=== PATIENT | female | born 1980 | race Caucasian/White ===

== ENCOUNTER 2020-12-05 11:41 | Inpatient (IN) | payer BC, MEDICAID, SELFPAY ==
[~2020-12-05] VITALS: Ht 165.1 cm; Wt 102.8 kg
[2020-12-05] VITALS (13 sets, daily range): BP systolic 52–141
--- NOTE | 2020-12-05 00:10 | NUR ---
Dr Sebastian at bedside with new orders. Lab called with blood culture of gram negative rods result. Dr Sebastian made aware at bedside.
--- NOTE | 2020-12-05 11:50 | NUR ---
Placed in room 8 . Placed on equipment monitor phototypesetting, blood pressure machine and pulse oximeter. To gown for exam. Side rails up.
--- NOTE | 2020-12-05 11:50 | NUR ---
Pt bib ambulance with complaint of SOB Xtoday with nonrebreather saturating 100% Respiratory rate tachypnic of 30 HR tachycardic of 120. Pt is AAOX4 breathing is even and labored. Pt placed in gurney attached to monitor. Pt has preexisting picc line on right arm. Pt presenting with edemateous bilateral lower extremeties. BP 108/73.
--- NOTE | 2020-12-05 11:59 | NUR ---
Pt titrated down from nonrebreather to 4L Nasal Canula Saturating 97% RR 30 HR 123 BP 108/73. Pt denies any chest pain or cough or fever. Pt reports the shortness of breath started this morning. Pt states she feels tired.
[2020-12-05] MEDS ORDERED: NOREPINEPHRINE BITARTRATE 4 MG in D5W 246 ML IV ONE (12:15)
--- NOTE | 2020-12-05 12:15 | NUR ---
ER at bedside examining patient.
[2020-12-05] MEDS ORDERED: SPIR100T PO (12:22)
[2020-12-05] MEDS ORDERED: LIDOINT TP (12:22)
[2020-12-05] MEDS ORDERED: SSNOVOLOG SUBCUT (12:22)
[2020-12-05] MEDS ORDERED: ASCO500T20 PO (12:22)
[2020-12-05] MEDS ORDERED: FURO-149 PO (12:22)
[2020-12-05] MEDS ORDERED: HYDR-3610 PO (12:22)
[2020-12-05] MEDS ORDERED: POLY17PO4 PO (12:22)
[2020-12-05] MEDS ORDERED: TRAM100T28 PO (12:22)
[2020-12-05] MEDS ORDERED: HUM100IN SQ (12:22)
[2020-12-05] MEDS ORDERED: LOSA100T3 PO (12:22)
--- NOTE | 2020-12-05 12:22 | NUR ---
Medication reconciliation completed with information provided by patient . Any prior medication reconciliation on file was reviewed and corrected.
--- NOTE | 2020-12-05 12:22 | NUR ---
Called pharmacy for norepinephrine medication order.
--- NOTE | 2020-12-05 12:26 | NUR ---
X-ray at bedside.
--- NOTE | 2020-12-05 12:29 | NUR ---
Lab at bedside.
--- NOTE | 2020-12-05 12:29 | NUR ---
Covid specimen collected and sent to lab.
--- NOTE | 2020-12-05 12:36 | NUR ---
RT at bedside.
--- NOTE | 2020-12-05 12:56 | NUR ---
Started norepinephrine 4mg in 250 D5W per MD order. Pt BP 76/53 HR 120. Started 0.1mcg/kg/min.
--- NOTE | 2020-12-05 13:01 | NUR ---
Titrated norepinephrine to 0.13mcg/kg/min BP 64/24. HR 117
--- NOTE | 2020-12-05 13:06 | NUR ---
Pt BP 130/ 50. HR 120. No titration needed.
[2020-12-05] MEDS ORDERED: CEFEPIME 1 GM in D5W 50 ML IV ONE (13:15)
[2020-12-05] MEDS ORDERED: AZITHROMYCIN 500 MG in NS 250 ML IV ONE (13:15)
[2020-12-05] MEDS ORDERED: VANCOMYCIN HCL 1,000 MG in NS 250 ML IV ONE (13:15)
[2020-12-05 13:21] LABS: BASOPHILS % (AUTO) 0.7 % (0.0-2.0); EOSINOPHILS % (AUTO) 0.3 % (0.0-4.0); HEMATOCRIT 33.2 % (36-48); HEMOGLOBIN 10.6 g/dL (12.0-16.0); LYMPHOCYTES # (AUTO) 0.2 K/uL (1.0-5.5); MEAN CORPUSCULAR HEMOGLOBIN 32 pg (27-31); MEAN CORPUSCULAR HGB CONC 32 % (32-36); MEAN CORPUSCULAR VOLUME 99 fL (79.0-98.0); MONOCYTES # (AUTO) 0.1 K/uL (0.0-1.0); MONOCYTES % (AUTO) 2.9 % (1.7-9.3); NEUTROPHILS # (AUTO) 1.6 K/uL (1.8-7.7); NEUTROPHILS % (AUTO) 87.1 % (40.0-70.0); PLATELET COUNT (AUTO) 78 K/uL (130-430); RED BLOOD CELL COUNT(AUTO) 3.34 MIL/uL (4.2-6.2); RED CELL DISTRIBUTION WIDTH 20.2 % (9.0-15.0)
[2020-12-05 13:23] LABS: WHITE BLOOD COUNT (AUTO) 1.8 K/uL (4.8-10.8)
[2020-12-05 13:26] LABS: CALCIUM 8.2 mg/dL (8.4-11.0); CREATININE 1.52 mg/dL (0.55-1.30); POTASSIUM 3.6 mmol/L (3.5-5.1)
[2020-12-05 13:30] LABS: INR 1.1 (0.8-1.2); PROTHROMBIN TIME 11.6 SECS (9.5-12.5)
[2020-12-05] MEDS ORDERED: CEFEPIME 1 GM/VIAL (MAXIPIME) ONE (13:30)
[2020-12-05 13:32] LABS: ALBUMIN 1.9 g/dL (3.4-4.8); TOTAL BILIRUBIN 1.3 mg/dL (0.0-1.0)
[2020-12-05] MEDS ORDERED: AZITHROMYCIN 500 MG/VIAL (ZITHROMAX) IV ONE (13:54)
[2020-12-05] MEDS ORDERED: NOREPINEPHRINE BITARTRATE 4 MG in NS 246 ML IV ONE (14:00)
[2020-12-05] MEDS ORDERED: NACL 0.9% 1,000 ML IV ONE (14:00)
--- NOTE | 2020-12-05 14:00 | NUR ---
Titrated down to 0.1mcg/kg/min BP 128/50 HR 117
--- NOTE | 2020-12-05 14:29 | NUR ---
Norepinephrine stopped. BP 155/88 HR 117.
--- NOTE | 2020-12-05 14:30 | NUR ---
Ritter cathter inserted with sterile technique. Pt tolerated well richmond colored urine collected into bag.
--- NOTE | 2020-12-05 14:41 | NUR ---
Admit orders recieved.
[2020-12-05] MEDS ORDERED: NACL 0.9% 1,000 ML IV SCH (14:45)
[2020-12-05] MEDS ORDERED: VANCOMYCIN HCL 1000 MG/VIAL IV ONE (14:51)
[2020-12-05 14:54] LABS: BILIRUBIN,URINE NEGATIVE (NEGATIVE); BLOOD, URINE NEGATIVE (NEGATIVE); CLARITY/URINE SL CLOUDY (CLEAR); COLOR,URINE YELLOW (YELLOW); GLUCOSE,URINE NEGATIVE (NEGATIVE); KETONES,URINE TRACE (NEGATIVE); LEUKOCYTE ESTERASE ,URINE NEGATIVE (NEGATIVE); NITRITE, URINE NEGATIVE (NEGATIVE); PH,URINE 5.5 (5.0-8.0); PROTEIN URINE TRACE (NEGATIVE); UROBILINOGEN,URINE 0.2 (0.2-1.0)
--- NOTE | 2020-12-05 14:56 | NUR ---
Patient will be admitted to care of Dr. Durán. Admitted to ICU unit. Will go to room 1. Belongings list completed. Complete and up to date summary report printed. SBAR report to be given at bedside with opportunity for questions.
[2020-12-05 14:58] LABS: BACTERIA,URINE FEW /HPF (None Seen); RBC,URINE 0-3 /HPF (0-3); WBC,URINE 0-3 /HPF (0-3); YEAST,URINE Many /HPF (None Seen)
[2020-12-05] MEDS ORDERED: HYDROCORTISONE SOD SUCC 100 MG/2 ML VIAL IVP ONE (15:00)
--- NOTE | 2020-12-05 15:20 | NUR ---
PT RECEIVED FROM ED, REPORT RECEIVED FROM MELISSA DEAN FOR CONTINUING CARE. PT ARRIVES ON NRB @15LPM, HYPOTENSIVE AND TACHYPNEIC. PT IS AAOX4, ANXIOUS
--- NOTE | 2020-12-05 15:38 | NUR ---
# 22 gauge angiocath placed to and. Use of asceptic technique. Opsite placed over site. Blood return noted. Blood for lab drawn from site. Flushed with 10 cc of normal saline. No evidence of infiltration noted. Patient tolerated well.
--- NOTE | 2020-12-05 15:40 | NUR ---
PT PLACED ON BIPAP, IPAP 12 EPAP 6, RATE 16. O2 100%. PTS O2 SAT 98-100%
--- NOTE | 2020-12-05 15:50 | NUR ---
CONSULTATION PAGED/CALLED Reason for Consultation: septic shock, tachycardia, hypotension Person Who was Notified: exchange Consulting Physician: Dr. Walker Ict Development Manager Specialty: cardiology Ordering Physician: Luis Armando Reason for Consultation: tachypnea, dyspnea, septic shock Person Who was Notified: exchange Consulting Physician: Dr. Mccloud Ict Development Manager Specialty: pulmonary Ordering Physician: Luis Armando
--- NOTE | 2020-12-05 16:15 | NUR ---
ER DR. CONTE AT THE BEDSIDE FOR INTUBATION, 7.5 ET TUBE PLACED AT 22CM TO LIP
--- NOTE | 2020-12-05 16:40 | NUR ---
ER DR. CONTE AT THE BEDSIDE FOR RIGHT SUBCLAVIAN CENTRAL LINE PLACEMENT
--- NOTE | 2020-12-05 16:45 | NUR ---
Dr. Mccloud in to see pt. New orders made and carried out.
[2020-12-05] MEDS ORDERED: NALOXONE HCL 0.4 MG/ML AMP (NARCAN) IVP PRN (17:00)
[2020-12-05] MEDS ORDERED: MORPHINE SULFATE IN 0.9 % NACL 100 ML IV PRN (17:00)
[2020-12-05] MEDS ORDERED: LR 1,000 ML IV ONE ×2 (17:00)
[2020-12-05] MEDS ORDERED: VASOPRESSIN 100 UNITS in D5W 45 ML IV PRN (17:00)
--- NOTE | 2020-12-05 17:04 | NUR ---
NICOLETTE. DR. VELASCO, ORDERS RECEIVED
--- NOTE | 2020-12-05 17:17 | NUR ---
CONSULTATION PAGED/CALLED Reason for Consultation: septic shock Person Who was Notified: exchange Consulting Physician: Dr. Phani Sebastian Analytics Director Specialty: infectious disease Ordering Physician: Dr. Durán
--- NOTE | 2020-12-05 17:27 | NUR ---
NICOLETTE URIBE FOR CONSULT, ORDERS RECEIVED
[2020-12-05] MEDS ORDERED: NOREPINEPHRINE BITARTRATE 16 MG in NS 234 ML IV PRN (17:30)
[2020-12-05] MEDS: PROPOFOL DRIP 100 ML IV PRN ×2 (17:36→23:02)
[2020-12-05] MEDS ORDERED: PIPERACILLIN/TAZO 3.375/DEX-IS 50 ML IV SCH (18:00)
[2020-12-05] MEDS: DEXTROSE 50% JECT 50 ML DISP.SYRIN IVP PRN (18:32)
[2020-12-05 18:54] LABS: HEMOGLOBIN 8.3 g/dL (12.0-16.0); RED BLOOD CELL COUNT(AUTO) 2.64 MIL/uL (4.2-6.2); RED CELL DISTRIBUTION WIDTH 20.3 % (9.0-15.0)
[2020-12-05] MEDS ORDERED: VANCOMYCIN HCL 1,750 MG in NS 500 ML IV SCH (19:00)
[2020-12-05 19:01] LABS: HEMATOCRIT 26.3 % (36-48); MEAN CORPUSCULAR HEMOGLOBIN 31 pg (27-31); MEAN CORPUSCULAR HGB CONC 32 % (32-36); MEAN CORPUSCULAR VOLUME 100 fL (79.0-98.0)
[2020-12-05 19:07] LABS: PLATELET COUNT (AUTO) 49 K/uL (130-430); WHITE BLOOD COUNT (AUTO) 1.4 K/uL (4.8-10.8)
--- NOTE | 2020-12-05 19:25 | NUR ---
REPORT GIVEN TO MELISSA AHUJA FOR CONTINUING CARE
--- NOTE | 2020-12-05 19:30 | NUR ---
Report received from day RN. Assuming care now.
[2020-12-05 19:35] LABS: BAND % (MANUAL) 53 % (0-6); BASOPHILS % (MANUAL) 0 % (0-2); EOSINOPHILS % (MANUAL) 1 % (0-7); LYMPHOCYTES % (MANUAL) 10 % (20-46); METAMYELOCYTES % 14 % (0-0); MONOCYTES % (MANUAL) 6 % (0-11); MYELOCYTES % 5 % (0-0); PROMYELOCYTES % 1 % (0-0)
[2020-12-05 19:37] LABS: CORRECTED WHITE BLOOD COUNT 1.2 K/uL (4.5-11.0)
--- NOTE | 2020-12-05 20:00 | NUR ---
Levophed iv pump set to 4mg/250ml while running 16mg/250ml concentration upon assessment. Pump changed to 16mg setting and increased to 1mcg/kg/min to maintain MAP>65
--- NOTE | 2020-12-05 20:02 | NUR ---
PAGED FOR ORDERS DIALED: [phone] SPOKE TO: TONYA
--- NOTE | 2020-12-05 20:20 | NUR ---
DR BUTT NOTIFIED OF ABG RESULTS, NO VENT CHANGE AT THIS TIME. NOTIFIED OF PATIENT'S CONDITION. nEOSYNEOPHRINE ORDERED IF VASOPRESSIN IS NOT ENOUGH MAP SUPPORT. LACTIC ACID IN AM.
[2020-12-05] MEDS: FLUCONAZOLE 400 mg/ NS 200 ML IV SCH (20:30)
[2020-12-05] MEDS: FAMOTIDINE PF 20 MG/2 ML VIAL IVP SCH (21:42)
[2020-12-05] MEDS: HYDROCORTISONE SOD SUCC 100 MG/2 ML VIAL IVP SCH (21:46)
[2020-12-05] MEDS ORDERED: FLUCONAZOLE 200 mg/ NS 200 ML IV ONE (21:59)
[2020-12-05] MEDS ORDERED: PIPERACILLIN/TAZO 4.5GM/DEX-IS 100 ML IV SCH (22:00)
[2020-12-05] MEDS: PHENYLEPHRINE HCL 50 MG in NS 245 ML IV PRN (23:03)
[2020-12-05] MEDS ORDERED: PHENYLEPHRINE HCL 10 MG/ML VIAL (NEOSYNEPHRINE) ONE (23:11)
[2020-12-06] VITALS (33 sets, daily range): BP systolic 91–189
[2020-12-06] MEDS ORDERED: NS 1000 ML IV.SOLN IV ONE (00:15)
[2020-12-06] MEDS ORDERED: ALBUMIN HUMAN 25% 200 ML IV ONE ×2 (00:30→02:48)
[2020-12-06] MEDS: NACL 0.9% 1,000 ML IV SCH ×4 (00:33→20:15)
[2020-12-06] MEDS: MEROPENEM 1 GM IVPB PREMIX 50 ML IV SCH ×2 (00:40→22:00)
[2020-12-06] MEDS ORDERED: MEROPENEM 500 MG VIAL IV ONE (00:42)
[2020-12-06] MEDS: NOREPINEPHRINE BITARTRATE 16 MG in NS 234 ML IV PRN ×3 (01:13→12:12)
[2020-12-06] MEDS ORDERED: PHENYLEPHRINE HCL 10 MG/ML VIAL (NEOSYNEPHRINE) ONE ×2 (02:35→05:51)
[2020-12-06 04:06] LABS: FOLATE (FOLIC ACID) 13.3 ng/mL (>3.0)
[2020-12-06] MEDS: HYDROCORTISONE SOD SUCC 100 MG/2 ML VIAL IVP SCH ×3 (06:38→21:42)
--- NOTE | 2020-12-06 07:00 | NUR ---
Recv report fr Wally rn, patient blood pressure very labile last night, currently patient is on 3 pressors all maxed out, bp is labile, i will monitor bp closely and titrate pressors according to patient's condition, patient is on Propofol at 15 mcg, arousable and responses to verbal commands, unable to increase due to low bp, Morphine is off. patient is being bolus with ns at 150 /hr to care for the sepsis, antibiotics were prescribed, will provide comfort, i will continue nursing care and interventions.
[2020-12-06 07:02] LABS: ALBUMIN 2.6 g/dL (3.4-4.8); CALCIUM 7.4 mg/dL (8.4-11.0); CREATININE 1.62 mg/dL (0.55-1.30); POTASSIUM 5.1 mmol/L (3.5-5.1); TOTAL BILIRUBIN 2.8 mg/dL (0.0-1.0)
[2020-12-06 07:06] LABS: HEMOGLOBIN A1C 5.4 % (4.8-5.6)
[2020-12-06 07:14] LABS: BASOPHILS % (AUTO) 0.2 % (0.0-2.0); EOSINOPHILS # (AUTO) 0.1 K/uL (0.0-0.4); EOSINOPHILS % (AUTO) 1.8 % (0.0-4.0); HEMATOCRIT 28.1 % (36-48); HEMOGLOBIN 8.7 g/dL (12.0-16.0); LYMPHOCYTES # (AUTO) 0.2 K/uL (1.0-5.5); LYMPHOCYTES % (AUTO) 5.9 % (20.5-51.5); MEAN CORPUSCULAR HEMOGLOBIN 32 pg (27-31); MEAN CORPUSCULAR HGB CONC 31 % (32-36); MEAN CORPUSCULAR VOLUME 104 fL (79.0-98.0); MONOCYTES # (AUTO) 0.2 K/uL (0.0-1.0); MONOCYTES % (AUTO) 4.3 % (1.7-9.3); NEUTROPHILS # (AUTO) 3.1 K/uL (1.8-7.7); RED BLOOD CELL COUNT(AUTO) 2.72 MIL/uL (4.2-6.2); RED CELL DISTRIBUTION WIDTH 20.8 % (9.0-15.0); WHITE BLOOD COUNT (AUTO) 3.6 K/uL (4.8-10.8)
[2020-12-06 07:51] LABS: NEUTROPHILS % (AUTO) 87.8 % (40.0-70.0); PLATELET COUNT (AUTO) 36 K/uL (130-430)
--- NOTE | 2020-12-06 08:00 | NUR ---
Dr. Fernández called he said he is going to be here reported abg results and he said to give 1 amp of sodium bicarb.
[2020-12-06] MEDS: PROPOFOL DRIP 100 ML IV PRN ×2 (08:23→16:58)
[2020-12-06] MEDS: VANCOMYCIN HCL 1,750 MG in NS 500 ML IV SCH (08:25)
[2020-12-06] MEDS: FAMOTIDINE PF 20 MG/2 ML VIAL IVP SCH ×2 (08:48→21:42)
[2020-12-06] MEDS ORDERED: SODIUM BICARBONATE 8.4% JECT 50 MEQ/50 ML SYRINGE IVP ONE (09:00)
[2020-12-06] MEDS: PHENYLEPHRINE HCL 50 MG in NS 245 ML IV PRN ×2 (09:03→12:23)
--- NOTE | 2020-12-06 09:25 | NUR ---
RT NOTES FIO2 to 0.50. Rn made aware. Will monitor pt.
--- NOTE | 2020-12-06 09:59 | NUR ---
Nutrition Update Morteza Scale 11 noted. Pt admitted for septic shock. Diet: NPO BMI: 33.3 kg/m2 RD to follow per nutrition care standards.
--- NOTE | 2020-12-06 10:00 | NUR ---
S/w Dr Sebastian, he said to titrate sbp >90, and titrate all drips accordingly, alos he said to keep patient hydrated. ananth lowered the vasopressing at 0.02 unit/hr. levophed remains both at maximum doses. i will closely monitor the patient.
--- NOTE | 2020-12-06 11:00 | NUR ---
Turned off the vasopressin drip, and titrated neosynephrinde downt to 2 mcg/kg/hr, sbp above 130S, also increased Propofol to 25 mcg, patient still mving around and trying to reach the et tube., i will continue to titrate the drips.
--- NOTE | 2020-12-06 12:00 | NUR ---
Titrated down neosyenphrine to 1 mcg/kg/hr and the levophed down to 0.8 mcg/kg/hr, Dr Sebastian came and said that continue to titrate drips, and also continue to hydrate the patient. patient's sbp consistenly above 100.
[2020-12-06] MEDS ORDERED: ETOMIDATE 20 MG/ 10 ML VIAL (AMIDATE) IVP ONE (13:29)
[2020-12-06] MEDS ORDERED: ROCURONIUM BROMIDE 10 MG/ML (ZEMURON) IV ONE (13:29)
--- NOTE | 2020-12-06 14:00 | NUR ---
Patient vitals sign continue to improved except hr remains in the 120 bpm, Turned off neosyephrine, 1 vasopressor left Levophed at 0.8 mcg/kg/hr, turned and repositioned the patient also vents fio2 down to 50 % current o2 sat is 96 to 97%...
--- NOTE | 2020-12-06 15:30 | NUR ---
Patient is undergoing lower arterial duplex ultrasound and will have a kidney ultrasound, patient is not having urine output, dr youssef is aware.
--- NOTE | 2020-12-06 19:30 | NUR ---
Report received from day RN. Assuming care now.
[2020-12-06] MEDS: FLUCONAZOLE 400 mg/ NS 200 ML IV SCH (20:49)
[2020-12-07] VITALS (34 sets, daily range): BP systolic 89–168
--- NOTE | 2020-12-07 01:23 | NUR ---
Accucheck=53, D50% given per protocol.
[2020-12-07] MEDS: DEXTROSE 50% JECT 50 ML DISP.SYRIN IVP PRN (01:36)
[2020-12-07] MEDS: NACL 0.9% 1,000 ML IV SCH (02:55)
[2020-12-07] MEDS: MEROPENEM 1 GM IVPB PREMIX 50 ML IV SCH ×3 (06:01→21:04)
[2020-12-07] MEDS: HYDROCORTISONE SOD SUCC 100 MG/2 ML VIAL IVP SCH ×3 (06:02→21:07)
[2020-12-07 07:17] LABS: ALBUMIN 1.4 g/dL (3.4-4.8); CREATININE 2.06 mg/dL (0.55-1.30); POTASSIUM 4.9 mmol/L (3.5-5.1); TOTAL BILIRUBIN 2.2 mg/dL (0.0-1.0)
[2020-12-07 07:21] LABS: CALCIUM 6.3 mg/dL (8.4-11.0)
[2020-12-07 08:07] LABS: MEAN CORPUSCULAR HEMOGLOBIN 33 pg (27-31); MEAN CORPUSCULAR HGB CONC 34 % (32-36); MEAN CORPUSCULAR VOLUME 99 fL (79.0-98.0); RED BLOOD CELL COUNT(AUTO) 2.05 MIL/uL (4.2-6.2); RED CELL DISTRIBUTION WIDTH 20.1 % (9.0-15.0); WHITE BLOOD COUNT (AUTO) 2.4 K/uL (4.8-10.8)
--- NOTE | 2020-12-07 08:29 | NUR ---
Called Dr. Graham with a consult, spoke with Edith from the exchange
[2020-12-07] MEDS: VANCOMYCIN HCL 1,750 MG in NS 500 ML IV SCH (08:58)
[2020-12-07] MEDS: FAMOTIDINE PF 20 MG/2 ML VIAL IVP SCH ×2 (08:59→20:59)
[2020-12-07] MEDS: FUROSEMIDE 40 MG/4 ML VIAL IVP SCH ×2 (08:59→21:03)
[2020-12-07] MEDS: D5/0.45 NS 1,000 ML IV SCH (09:01)
--- NOTE | 2020-12-07 09:15 | NUR ---
RT NOTES FIO2 TO 0.40. RN MADE AWARE.
[2020-12-07] MEDS ORDERED: CALCIUM GLUCONATE 2 GM in NS 100 ML IV ONE (09:30)
[2020-12-07 09:38] LABS: INR 1.1 (0.8-1.2); PROTHROMBIN TIME 11.9 SECS (9.5-12.5)
[2020-12-07 10:41] LABS: HEMATOCRIT 20.3 % (36-48); HEMOGLOBIN 6.8 g/dL (12.0-16.0); PLATELET COUNT (AUTO) 11 K/uL (130-430)
[2020-12-07] MEDS: NOREPINEPHRINE BITARTRATE 16 MG in NS 234 ML IV PRN ×2 (11:41→23:30)
--- NOTE | 2020-12-07 11:49 | NUR ---
Called Franklyn Delarosa with a consult(El catheter placement) spoke with Yesica from doctors office.
--- NOTE | 2020-12-07 12:00 | NUR ---
Patient hr sustaining above 150's paged dr olimpia howe cardiologists to get orders for medication.
[2020-12-07] MEDS ORDERED: AMIODARONE HCL 150 MG in D5W 100 ML IV ONE (12:15)
[2020-12-07] MEDS: PROPOFOL DRIP 100 ML IV PRN ×2 (13:14→21:07)
--- NOTE | 2020-12-07 13:30 | NUR ---
WOUND EVALUATION: Late note for 12/07/2020 at 1330 secondary to patient care. Wound Consult received from Dr. Durán. Thank you, Dr. Durán, for the consult. Patient received in a Omega Bed with a mattress, nonverbal, nonresponsive to verbal commands. Patient is unable to turn in bed independently. Morteza Score is a 7. Past Medical History: Diabetes Mellitus. Upon admission, the patient was found to be in septic shock with hypoxemia. Recent Labs: WBC 2.4, RBC 2.05, hemoglobin is 6.8, hematocrit 20.3, platelets 11, chloride 111, BUN 39, creatinine 2.06, GFR 28, glucose 108, calcium 6.3, total bilirubin 2.2, AST 48, serum total protein 3.7, albumin 1.4, PTT 53.4, fibrinogen 491, D-dimer 2370. Microbiology: MRSA screen results negative. Blood culture results positive for Klebsiella pneumoniae (12/05). Urine culture results negative. Foot wound culture results positive for Enterococcus faecalis. Leg wound culture results positive for Klebsiella pneumoniae A. Foot Gram stain positive for yeast. Endotracheal sputum culture results negative. Blood culture results x2 negative (12/07). Intrinsic factors that delay wound healing: Diabetes mellitus, severe hypoalbuminemia. Extrinsic factors that delay wound healing: Immobility. Wound Assessment: 1. Right Posterior Calf: Wound, possible vascular ulcer, present on admission. Wound bed has 90% yellow tissue, 10% red tissue. No odor, small serous drainage. Periwound intact. Extremity has 4+ pitting edema, and red/dark purple/black ecchymosis. Wound measures 1.4 cm x 1.0 cm. 2. Right Anterior Lateral Proximal Thigh: Open bulla, present on admission. Site has 100% red tissue. No odor, scant serous drainage. Extremity has 4+ pitting edema, and red/dark purple/black ecchymosis. Open area measures 3.0 cm x 5.8 cm. Recommend: Cleanse wounds with normal saline. Apply moisture barrier cream to hari-wounds. Apply Hydrogel to wound beds. Cover with non-adhesive foam dressings. Wrap with vidya wrap. Perform wound care daily, and as needed for dressing soiling or dislodgement. 3. Right Lateral Proximal Thigh: Closed bulla with serous fluid, present on admission. Extremity has 4+ pitting edema, and red/dark purple/black ecchymosis. 4. Right Anterior Dee: Multiple scattered closed bullae with serous fluid, present on admission. Extremity has 4+ pitting edema, and red/dark purple/black ecchymosis. 5. Right Anterior Medial Dee: Closed bulla with serous fluid, present on admission. Extremity has 4+ pitting edema, and red/dark purple/black ecchymosis. Recommend: No dressings needed. Continue to monitor sites every shift. Contact wound care nurse if sites open or drain for wound care orders. 6. Right Dorsal Medial foot: Wound, possible vascular ulcer, present on admission. Wound bed has 90% yellow tissue, 10% pink tissue. No odor, small yellow drainage. Periwound intact. Extremity has 4+ pitting edema, and red/dark purple/black ecchymosis. Wound measures 3.2 cm x 2.0 cm. 7. Right Dorsal Foot: Wound, possible vascular ulcer, present on admission. Wound bed has 95% yellow tissue, 5% pink tissue. No odor, small yellow drainage. Periwound intact. Extremity has 4+ pitting edema, and red/dark purple/black ecchymosis. Wound measures 3.8 cm x 1.8 cm. Recommend: Cleanse wounds with normal saline. Apply moisture barrier cream to hari-wounds. Apply Hydrogel to wound beds. Cover with non-adhesive foam dressings. Wrap with vidya wrap. Perform wound care daily, and as needed for dressing soiling or dislodgement. 8. Left Anterior Medial Calf: Wound, possible vascular ulcer, present on admission. Wound bed has 90% yellow tissue, 5% pink tissue, 5% brown tissue. No odor, scant yellow drainage. Periwound intact. Extremity has 4+ pitting edema, and red/dark purple/black ecchymosis. Wound measures 4.4 cm x 3.5 cm. 9. Left Mid Anterior Dee: Wound, possible vascular ulcer, present on admission. Wound bed has 100% yellow tissue. No odor, moderate serous drainage. Periwound intact. Extremity has 4+ pitting edema, and red/dark purple/black ecchymosis. Wound measures 3.0 cm x 2.0 cm x 1.1 cm. Recommend: Cleanse wounds with normal saline. Apply moisture barrier cream to hari-wounds. Apply Hydrogel to wound beds. Cover with non-adhesive foam dressings. Wrap with vidya wrap. Perform wound care daily, and as needed for dressing soiling or dislodgement. 10. Left Lower Extremity, Inferior to Knee: Healing wound, present on admission. Wound bed has 100% pink tissue. No odor, no drainage. Periwound intact. Extremity has 4+ pitting edema, and red/dark purple/black ecchymosis. Site measures 2.0 cm x 1.6 cm. Recommend: Cleanse involved area with mild soap and water. Gently pat dry. Apply moisture barrier cream to involved area. Cover site with foam dressing. Perform site care daily, and as needed for dressing soiling or dislodgment. 11. Left Dorsal Foot: Wound, probable vascular ulcer, present on admission. Wound bed has 95% yellow tissue, 5% pink tissue. No odor, scant yellow drainage. Extremity has 4+ pitting edema, and red/dark purple/black ecchymosis. Wound measures 3.5 cm x 2.5 cm x 0.9 cm. Recommend: Cleanse wound with normal saline. Apply moisture barrier cream to hari-wound. Apply Hydrogel to wound bed. Cover with non-adhesive foam dressing. Wrap with vidya wrap. Perform wound care daily, and as needed for dressing soiling or dislodgement. Also recommend: Reposition patient side to side only every 2 hours with pillow support and off-load pressure areas with pillows for pressure re-distribution. Offload, elevate and float bilateral heels with one pillow lengthwise under each extremity at all times. Perform skin care and monitor skin integrity Q shift. Use moisture barrier cream on buttocks and other moisture susceptible areas QID and as needed for soiling. Initiate low air-loss therapy.
[2020-12-07 13:44] LABS: BAND % (MANUAL) 32 % (0-6); EOSINOPHILS % (MANUAL) 2 % (0-7); LYMPHOCYTES % (MANUAL) 10 % (20-46); MONOCYTES % (MANUAL) 6 % (0-11)
[2020-12-07 13:45] LABS: BASOPHILS % (MANUAL) 0 % (0-2); METAMYELOCYTES % 16 % (0-0); MYELOCYTES % 4 % (0-0)
--- NOTE | 2020-12-07 14:52 | NUR ---
spoke with patient's sister Jacquelin who is the main contact as well as lucía her mother, she gave the ok to cut patient's 5 gold bracelets. Addendum: 12/11/20 at 1244 by Manuel Burns RN Patient's mother Lucía came at around 4 pm, to pick up man patient's cell phone and 5 gold color bracelets.
--- NOTE | 2020-12-07 15:00 | NUR ---
Patient went on uncontrolled afib, notified dr rafael howe, he ordered for amiodarone protocol.
--- NOTE | 2020-12-07 16:00 | NUR ---
Patient hr remains still at 130 snow amiodarone is at 1 mg/hr, i will continue to monitor the patient
--- NOTE | 2020-12-07 17:00 | NUR ---
Trung wound care nurse, he checked all the wounds and will enter orders for wound care.
--- NOTE | 2020-12-07 18:00 | NUR ---
[facility] dialysis nurse, came to do the dialysis, i will pick up truck driver prbc per order.
--- NOTE | 2020-12-07 18:30 | NUR ---
Patients hr went down to low 60's , Enmanuel stopped the dialysis , also i stopped the amiodaron drip, we will closely monitor the patient, Lizeth is on stand by , platelet still needs to be given, i will give report to the lieutenant shift supervisor nursel
--- NOTE | 2020-12-07 19:30 | NUR ---
Pt report received. Pt sedated, mechanically ventilated: A/C, 24, 400, 40%, 5. OGT clamped. Right Subclavian Triple Lumen central line patent and secure with Levophed Drip infusing at 0.5 mcg/kg/min, Propofol at 25 mcg/kg/min, and D5 1/2 NS at 50 mL/hr. 4+ pitting edema, skin mottling and bruising generalized to abdomen and all extremities. Weeping to BUE from previous venipuncture sites and to open blisters to right upper thigh, saturating linens. Large fluid filled blisters to lateral RLE. F/C secure draining cloudy richmond urine with 200 mL to bag. Foam dsgs to bilat feet. Hemodialysis in progress to Right femoral El cath. VSS stable and NAD at this time.
--- NOTE | 2020-12-07 20:41 | NUR ---
Hemodialysis complete with 2000 mL fluid removal. Levophed titrations required during treatment. Bed linens changed, clean gown applied, pressure dsgs applied to weeping sites, chucks placed beneath extremities. ABD pads and chucks applied to right upper thigh and to closed blisters to lateral RLE.
[2020-12-07] MEDS: FLUCONAZOLE 400 mg/ NS 200 ML IV SCH (21:04)
[2020-12-08] VITALS (23 sets, daily range): BP systolic 90–164
--- NOTE | 2020-12-08 | NUR ---
ABD pads to right upper thigh saturated with serosanguinous drainage. New dsgs applied. Dsg to El cath saturated with serosanguinous fluid. Dsg changed using sterile technique.
--- NOTE | 2020-12-08 04:00 | NUR ---
Chucks and ABD pads to RLE soiled. New dsgs applied.
[2020-12-08] MEDS ORDERED: PROPOFOL DRIP 100 ML IV ONE (04:47)
[2020-12-08] MEDS: NOREPINEPHRINE BITARTRATE 16 MG in NS 234 ML IV PRN ×3 (04:53→23:11)
[2020-12-08] MEDS: PROPOFOL DRIP 100 ML IV PRN ×4 (04:53→21:48)
[2020-12-08] MEDS: HYDROCORTISONE SOD SUCC 100 MG/2 ML VIAL IVP SCH ×3 (05:26→22:06)
[2020-12-08] MEDS: MEROPENEM 1 GM IVPB PREMIX 50 ML IV SCH ×3 (05:27→22:06)
[2020-12-08] MEDS: D5/0.45 NS 1,000 ML IV SCH (05:27)
--- NOTE | 2020-12-08 07:20 | NUR ---
Pt report given to oncoming RN. No changes in vent settings, Levophed Drip at 0.54 mcg/kg/min, Propofol at 25 mcg/kg/minj, D5 1/2 NS at 50 mL/hr to patent and secure to RSC TLC. Total U/O this shift 250 mL. VSS.
--- NOTE | 2020-12-08 08:00 | NUR ---
PT RECIEVED SEDATED, GAG/COUGH PRESENT BUT WELL SEDATED ON PROPOFOL DRIP/SLIGHTLY FEB Addendum: 12/08/20 at 1357 by Billie Acosta radiographic technologist SLIGHTLY FEBRILE BUT BP STABLE ON LEVOPHED DOSE/PT HAS WHITE FOAMY SECRETIONS IN MODERATE AMOUNT AND IS IN NO APPARENT DISTRESS ON VENT//MW
[2020-12-08] MEDS: FUROSEMIDE 40 MG/4 ML VIAL IVP SCH ×2 (09:30→22:06)
[2020-12-08] MEDS: FAMOTIDINE PF 20 MG/2 ML VIAL IVP SCH ×2 (09:30→22:07)
--- NOTE | 2020-12-08 09:52 | NUR ---
Called Sam Bucio with a consult,spoke with Clary from the exchange
[2020-12-08] MEDS ORDERED: NOREPINEPHRINE 4 MG/4 ML VIAL IV ONE ×3 (10:28→16:04)
[2020-12-08 10:35] LABS: HEMOGLOBIN 7.6 g/dL (12.0-16.0); MEAN CORPUSCULAR HEMOGLOBIN 32 pg (27-31); MEAN CORPUSCULAR HGB CONC 35 % (32-36); MEAN CORPUSCULAR VOLUME 93 fL (79.0-98.0); RED BLOOD CELL COUNT(AUTO) 2.36 MIL/uL (4.2-6.2); RED CELL DISTRIBUTION WIDTH 19.1 % (9.0-15.0); WHITE BLOOD COUNT (AUTO) 5.5 K/uL (4.8-10.8)
[2020-12-08 10:42] LABS: CREATININE 2.01 mg/dL (0.55-1.30); POTASSIUM 4.3 mmol/L (3.5-5.1)
[2020-12-08 10:48] LABS: ALBUMIN 1.3 g/dL (3.4-4.8); TOTAL BILIRUBIN 3.3 mg/dL (0.0-1.0)
[2020-12-08 10:50] LABS: PLATELET COUNT (AUTO) 5 K/uL (130-430)
[2020-12-08 10:51] LABS: CALCIUM 6.8 mg/dL (8.4-11.0)
[2020-12-08 12:44] LABS: BAND % (MANUAL) 29 % (0-6); BASOPHILS % (MANUAL) 0 % (0-2); EOSINOPHILS % (MANUAL) 0 % (0-7); LYMPHOCYTES % (MANUAL) 7 % (20-46); METAMYELOCYTES % 1 % (0-0); MONOCYTES % (MANUAL) 7 % (0-11)
--- NOTE | 2020-12-08 13:53 | NUR ---
PT RECIEVING 1 UNIT PRBC NOW WITH DIALYSIS, PT PLATELETS STILL NOT HERE FROM [place] BUT PRBC XFUSION RUNNING//MW
--- NOTE | 2020-12-08 16:23 | NUR ---
Nutrition Note RD called ICU and spoke w/ pt's primary RN to inquire about possibility of starting EN support via OGT. He stated that he asked two separate physicians today, and they stated that pt is not yet ready to start feeding. Please refer to Nutrition Assessment 12/07 for recommendation once TF is medically appropriate.
[2020-12-08] MEDS: FLUCONAZOLE 400 mg/ NS 200 ML IV SCH (22:05)
[2020-12-09] VITALS (31 sets, daily range): BP systolic 86–141
[2020-12-09] MEDS: D5/0.45 NS 1,000 ML IV SCH (00:45)
[2020-12-09] MEDS: INSULIN REGULAR, HUMAN 100 UNITS/ML, 10 ML VIAL (humuLIN R) SUBCUT PRN ×2 (01:24→20:04)
[2020-12-09] MEDS: PROPOFOL DRIP 100 ML IV PRN ×4 (01:25→14:49)
[2020-12-09] MEDS ORDERED: LEVOFLOXACIN IN DEXTROSE 5 % 100 ML IV ONE (03:30)
[2020-12-09] MEDS: HYDROCORTISONE SOD SUCC 100 MG/2 ML VIAL IVP SCH ×3 (06:50→21:15)
[2020-12-09] MEDS: FUROSEMIDE 40 MG/4 ML VIAL IVP SCH ×2 (08:27→21:14)
[2020-12-09] MEDS: FAMOTIDINE PF 20 MG/2 ML VIAL IVP SCH ×2 (08:27→21:15)
[2020-12-09 08:39] LABS: HEMATOCRIT 23.1 % (36-48); HEMOGLOBIN 8.3 g/dL (12.0-16.0); MEAN CORPUSCULAR HEMOGLOBIN 32 pg (27-31); MEAN CORPUSCULAR HGB CONC 36 % (32-36); MEAN CORPUSCULAR VOLUME 90 fL (79.0-98.0); RED BLOOD CELL COUNT(AUTO) 2.56 MIL/uL (4.2-6.2); RED CELL DISTRIBUTION WIDTH 17.8 % (9.0-15.0); WHITE BLOOD COUNT (AUTO) 6.2 K/uL (4.8-10.8)
[2020-12-09 09:27] LABS: CREATININE 1.53 mg/dL (0.55-1.30); POTASSIUM 4.1 mmol/L (3.5-5.1); VANCOMYCIN,RANDOM 49.8 ug/mL
[2020-12-09 10:13] LABS: PLATELET COUNT (AUTO) 25 K/uL (130-430)
--- NOTE | 2020-12-09 10:15 | NUR ---
PAGED DR. ALEMAN R/T PLATELET CRITICAL VALUE, PENDING RETURN CALL.
[2020-12-09] MEDS: NOREPINEPHRINE BITARTRATE 16 MG in NS 234 ML IV PRN ×2 (10:35→23:22)
--- NOTE | 2020-12-09 10:43 | NUR ---
SPOKE TO DR. KRAMER IN PERSON, NEW ORDER RCVD FOR ONE UNIT OF PLATELET. PRIMARY NURSE MADE AWARE.
[2020-12-09] MEDS ORDERED: ACETAMINOPHEN 650 MG/20.3 ML UDC GT PRN (11:00)
[2020-12-09 12:01] LABS: ERYTHROCYTE SEDIMENTATION RATE 85 MM/HR (0-20)
[2020-12-09 12:08] LABS: C-REACTIVE PROTEIN QUANT 110.3 mg/dL (0-0.5)
[2020-12-09] MEDS ORDERED: VASOPRESSIN 40 UNITS in NS 38 ML IV PRN (12:30)
[2020-12-09 12:48] LABS: BAND % (MANUAL) 20 % (0-6); BASOPHILS % (MANUAL) 0 % (0-2); EOSINOPHILS % (MANUAL) 0 % (0-7); LYMPHOCYTES % (MANUAL) 7 % (20-46); METAMYELOCYTES % 4 % (0-0); MONOCYTES % (MANUAL) 8 % (0-11)
[2020-12-09] MEDS ORDERED: MAGNESIUM SULFATE IV ONE ×2 (14:30→18:00)
[2020-12-09] MEDS ORDERED: NS IV ONE (18:00)
--- NOTE | 2020-12-09 20:00 | NUR ---
SEDATED. ORALLY INTUBATED. SUCTIONED WITH MOD AMOUNT OF THIN WHITE MUCUS OBTAINED. ORAL CARE GIVEN. RIJ TLC DRSG D/I. ON PROPOFOL DRIP AT 20 MCG/KG/MIN, LEVOPHED AT 0.2 MCG/KG/MIN, CARDIZEM DRIP AT 5 MG/HR. RIGHT FEMORAL TRICIA CATH DRSG D/I. OGT FEEDING WITH NEPRO AT 10CC/HR. HOPKINS CATH PATENT DRAINING CLOUDY JACOB URINE TO GRAVITY. ANASARCA. ARMS WEEPING. SEVERAL POPPED BLISTERS NOTED. SR.
--- NOTE | 2020-12-09 21:00 | NUR ---
1 PLATELETPHERESIS HUNG. NO ADVERSE REACTION.
[2020-12-09] MEDS: FLUCONAZOLE 400 mg/ NS 200 ML IV SCH (21:13)
--- NOTE | 2020-12-09 22:00 | NUR ---
HS CARE DONE.
--- NOTE | 2020-12-09 23:00 | NUR ---
PLATELETPHERESIS ALL INFUSED.
[2020-12-10] VITALS (32 sets, daily range): BP systolic 103–129
--- NOTE | 2020-12-10 | NUR ---
ACCU-CHEK 218, 4 UNITS REGULAR INSULIN SQ GIVEN PER SLIDING SCALE COV. SUCTIONED. TURNED. ORAL CARE DONE. RESIDUAL CHECK 0.
[2020-12-10] MEDS: INSULIN REGULAR, HUMAN 100 UNITS/ML, 10 ML VIAL (humuLIN R) SUBCUT PRN ×4 (00:21→18:38)
[2020-12-10] MEDS: PROPOFOL DRIP 100 ML IV PRN ×2 (02:10→08:14)
[2020-12-10] MEDS: MEROPENEM 500 MG in NS 50 ML IV SCH ×3 (02:36→23:24)
[2020-12-10] MEDS ORDERED: MEROPENEM 500 MG VIAL IV ONE (02:36)
--- NOTE | 2020-12-10 04:00 | NUR ---
SUCTIONED. TURNED. ORAL CARE DONE.
[2020-12-10] MEDS: D5/0.45 NS 1,000 ML IV SCH (04:12)
[2020-12-10] MEDS: HYDROCORTISONE SOD SUCC 100 MG/2 ML VIAL IVP SCH ×2 (05:57→14:46)
--- NOTE | 2020-12-10 06:00 | NUR ---
ACCU-CHEK 234, 4 UNITS REGULAR INSULIN SQ GIVEN PER SLIDING SCALE COV. UO OLIGURIC. LEGS WEEPING. REMAINS IN GUARDED CONDITION.
[2020-12-10 06:55] LABS: ALBUMIN 0.9 g/dL (3.4-4.8); CALCIUM 7.3 mg/dL (8.4-11.0); CREATININE 1.93 mg/dL (0.55-1.30); PHOSPHORUS 5.1 mg/dL (2.7-4.5); POTASSIUM 4.6 mmol/L (3.5-5.1); TOTAL BILIRUBIN 3.6 mg/dL (0.0-1.0)
[2020-12-10 07:04] LABS: HEMATOCRIT 22.6 % (36-48); HEMOGLOBIN 7.8 g/dL (12.0-16.0); MEAN CORPUSCULAR HEMOGLOBIN 31 pg (27-31); MEAN CORPUSCULAR HGB CONC 35 % (32-36); MEAN CORPUSCULAR VOLUME 91 fL (79.0-98.0); RED BLOOD CELL COUNT(AUTO) 2.49 MIL/uL (4.2-6.2); RED CELL DISTRIBUTION WIDTH 18.2 % (9.0-15.0); WHITE BLOOD COUNT (AUTO) 7.3 K/uL (4.8-10.8)
--- NOTE | 2020-12-10 07:12 | NUR ---
Opening Note: SBAR report received from night nurse, all cares assumed. Pt laying supine in bed with eyes closed. Bed locked and in low position.
[2020-12-10 07:49] LABS: PLATELET COUNT (AUTO) 27 K/uL (130-430)
--- NOTE | 2020-12-10 07:50 | NUR ---
CRITICAL LAB: Kasey from Laboratory called with critical lab value Platelets 27. Medical record number and patient name verified. Read back of values done. Dr. Durán notified of value. No new orders given at this time.
--- NOTE | 2020-12-10 08:00 | NUR ---
ROUNDS Dr. Santos de la cruz, gave verbal orders to hold heparin today and schedule dialysis today with 1 unit PRBC's to be tranfused with dialysis. Dr. Aaron de la cruz, made aware of stopping cardizem infusion. No new orders at this time.
--- NOTE | 2020-12-10 08:33 | NUR ---
HEMODIALYSIS DIALYSIS NURSE IN THE ROOM, DIALYSIS HAD BEGUN.
[2020-12-10] MEDS: FAMOTIDINE PF 20 MG/2 ML VIAL IVP SCH ×2 (08:53→21:01)
[2020-12-10] MEDS: FUROSEMIDE 40 MG/4 ML VIAL IVP SCH ×2 (08:54→21:01)
--- NOTE | 2020-12-10 09:30 | NUR ---
Family Sister of pt called, update given, all questions answered at this time.
--- NOTE | 2020-12-10 11:03 | NUR ---
CONSULT HEMATOLOGY CONSULTING MD: DR. ESQUIVEL PERSON NOTIFIED: DINAH DIALED: [phone] ORDERED BY: DR. ALBERTO
[2020-12-10 11:24] LABS: ERYTHROCYTE SEDIMENTATION RATE 101 MM/HR (0-20)
[2020-12-10 11:28] LABS: C-REACTIVE PROTEIN QUANT 64.1 mg/dL (0-0.5)
[2020-12-10 12:01] LABS: BAND % (MANUAL) 11 % (0-6); BASOPHILS % (MANUAL) 0 % (0-2); EOSINOPHILS % (MANUAL) 0 % (0-7); LYMPHOCYTES % (MANUAL) 15 % (20-46); METAMYELOCYTES % 4 % (0-0); MONOCYTES % (MANUAL) 10 % (0-11)
--- NOTE | 2020-12-10 14:13 | NUR ---
Nutrition F/U Admitting Diagnosis: Septic Shock Medical History Comment: Pt w/: pneumonia, son ST-elevation myocardial infarction, acute kidney injury, thrombocytopenia, lymphopenia. PMH: diabetes 12/10 MD notes: Right foot wound infection 2/2 enteroccous Facealis, left foot wound infection 2/2 klebsiella pneumoniae SARS-CoV-2 Ag Rapid Negative 12/05 Subjective Information: Pt remains in ICU, intubated and sedated. Pt as having dialysis at bedside during visit, EN was off. RD s/w pt's primary RN who verified that EN was infusing at 10ml/hr earlier, and RN to clarify frequency of water flush w/ MD and assess pt is pt is ready for an increase in infusion rate. Pt w/ febrile episode yesterday w/ maximum temperature at 100.6 F. Pt continues w/ dialysis and plan to received PRBC today. Per EMR review, EN rate: 10ml (12/10), GRV: 0ml (12/10). Morteza scale: 7, pt w/ pale skin color and RN noted: wound to anterior left foot, ecchymosis to anterior right foot and lower right leg. Pt w/ 4+ pitting edema to BLE, and 3+ pitting edema to Bilateral all extremities. Abdomen is soft and nondistended w/ active bowel sounds. No BM recorded since admission. Current EN rate (10ml) provides: 432 kcal,19gm protein and 174ml fluids daily which meets <30% of both estimated calorie and protein needs. Pt is w/ inadequate nutrition intake and Ever for wound healing and increasing EN rate to better meet estimated needs is warranted. Current Diet Order/Nutrition Support: Nepro at 30ml/hr, FWF 150ml via NGT x 1 day Pertinent Medications: Lasix, Pepcid, solu-cortef, D5NS at 50ml/hr (204kcal/day), Propofol at 10.886ml/hr (287kcal/day) Pertinent Labs (12/10) Na 136 WNL, K4.6WNL BUN 33H Cr 1.93H, BG 253H, POC BG 234H, Phos 5.1H, AST 47H Height: 5 feet, 5.00 inches Weight: 200 pounds, 90.677830 kilograms (12/07) --stable Body Mass Index: 33.28 kg/m2 [place]/Adjusted Body Weight: 125#/57kg NEW Estimated Energy Expenditure (kcals/day) (Tmax: 100.6'F/ 38.1'C; Ve; 12.2) 2041 Kcal/day (PSU for vent) Estimated Protein Required (g/day) 68-86 gm/day (1.2-1.5 gm/kg IBW for JOSUE on HD) Estimated Fluid Required (l/day) per MD (JOSUE and diuretic administration) Problem/Etiology/Signs/Symptoms Inadequate intake r/t intubated status AEB NPO x 2 days since admission. (*ongoing, pt on EN but intake <50%) Increased protein-calorie needs r/t metabolic demands AEB estimated calorie and protein for JOSUE and plan to be on HD (*ongoing) Expected Outcomes/Goals Monitor EN tolerance and intake w/ goal of pt meeting more than 75% of estimated nutritional needs, labs trending WNL, normal GI function, skin integrity/wt maintenance. Dietitian Recommendations *Recommend: increase EN infusion to meet estimated nutrient needs. *Recommend: Nepro at 40ml/hr (goal rate), ever BID, FWF per physician via NGT Provides (+propofol and ever): 2175 kcal, 83gm protein and 698ml/ fluids from EN alone. Meets: 106% of estimated calorie needs and 96% of upper end of estimated protein needs. Follow Up High Risk: F/U in 2-3days
--- NOTE | 2020-12-10 14:25 | NUR ---
Dietitian Recommendations *Recommend: increase EN infusion to meet estimated nutrient needs. *Recommend: Nepro at 40ml/hr (goal rate), donnie BID, FWF per physician via NGT Provides (+propofol and donnie): 2175 kcal, 83gm protein and 698ml/ fluids from EN alone. Meets: 106% of estimated calorie needs and 96% of upper end of estimated protein needs. Please see Nutrition F/U note for details. ASSISTED, RD
[2020-12-10] MEDS: NOREPINEPHRINE BITARTRATE 16 MG in NS 234 ML IV PRN (14:48)
[2020-12-10] MEDS: methylPREDNISolone SOD SUCC/PF 62.5 MG/ML VIAL IVP SCH (18:30)
--- NOTE | 2020-12-10 19:23 | NUR ---
Closing note: SBAR report given to oncoming night nurse, all cares endorsed. Pt sedated, intubated, laying supine in bed.
--- NOTE | 2020-12-10 19:30 | NUR ---
Opening Note Received report from AM nurse using SBAR approach.
[2020-12-10] MEDS: FLUCONAZOLE 400 mg/ NS 200 ML IV SCH (21:01)
[2020-12-11] VITALS (33 sets, daily range): BP systolic 104–146
--- NOTE | 2020-12-11 | NUR ---
Family Family called and asked for update. Provided update for family and answered all questions.
[2020-12-11] MEDS: methylPREDNISolone SOD SUCC/PF 62.5 MG/ML VIAL IVP SCH ×4 (00:22→17:45)
[2020-12-11] MEDS: INSULIN REGULAR, HUMAN 100 UNITS/ML, 10 ML VIAL (humuLIN R) SUBCUT PRN ×4 (00:24→17:49)
--- NOTE | 2020-12-11 02:00 | NUR ---
Family Family called and asked for update. Provided update for family and answered all questions.
[2020-12-11 06:29] LABS: EOSINOPHILS % (AUTO) 0.2 % (0.0-4.0); HEMATOCRIT 31.5 % (36-48); HEMOGLOBIN 10.6 g/dL (12.0-16.0); LYMPHOCYTES # (AUTO) 0.2 K/uL (1.0-5.5); LYMPHOCYTES % (AUTO) 4.8 % (20.5-51.5); MEAN CORPUSCULAR HEMOGLOBIN 31 pg (27-31); MEAN CORPUSCULAR HGB CONC 34 % (32-36); MEAN CORPUSCULAR VOLUME 91 fL (79.0-98.0); MONOCYTES % (AUTO) 0.3 % (1.7-9.3); NEUTROPHILS # (AUTO) 4.3 K/uL (1.8-7.7); NEUTROPHILS % (AUTO) 94.7 % (40.0-70.0); RED BLOOD CELL COUNT(AUTO) 3.44 MIL/uL (4.2-6.2); RED CELL DISTRIBUTION WIDTH 17.3 % (9.0-15.0); WHITE BLOOD COUNT (AUTO) 4.5 K/uL (4.8-10.8)
[2020-12-11] MEDS: NOREPINEPHRINE BITARTRATE 16 MG in NS 234 ML IV PRN (07:10)
[2020-12-11] MEDS: PROPOFOL DRIP 100 ML IV PRN ×2 (07:11→17:47)
--- NOTE | 2020-12-11 07:15 | NUR ---
RECEIVED REPORT FROM PM RN. PT STABLE, VSS, REMAINS ON LEVOPHED AND DIPRIVAN.
[2020-12-11 07:38] LABS: PLATELET COUNT (AUTO) 5 K/uL (130-430)
[2020-12-11 07:55] LABS: TOTAL IRON BIND. CAPACITY 65 ug/dL (250-450)
[2020-12-11] MEDS: FUROSEMIDE 40 MG/4 ML VIAL IVP SCH ×2 (08:14→20:51)
[2020-12-11] MEDS: FAMOTIDINE PF 20 MG/2 ML VIAL IVP SCH ×2 (08:14→20:52)
[2020-12-11] MEDS: LEVOFLOXACIN 250 MG/D5W 50 ML IV SCH (08:15)
[2020-12-11] MEDS: MEROPENEM 500 MG in NS 50 ML IV SCH ×2 (10:45→23:13)
[2020-12-11] MEDS: D5/0.45 NS 1,000 ML IV SCH ×2 (11:45→11:46)
--- NOTE | 2020-12-11 19:30 | NUR ---
PM SHIFT ASSESSMENT Patient is sedated on the vent, tolerating current vent settings. ST noted on the monitor. IVF infusing, no signs of infiltration noted. Ritter catheter in place and draining to gravity. Safety precautions in place, call light within reach. Will continue to monitor.
[2020-12-11] MEDS: FLUCONAZOLE 400 mg/ NS 200 ML IV SCH (20:51)
--- NOTE | 2020-12-11 21:29 | NUR ---
PAGED FOR ORDERS DIALED: [phone] SPOKE TO: DRAGAN
--- NOTE | 2020-12-11 21:56 | NUR ---
PAGED FOR ORDERS FOLLOW UP PAGE DIALED: [phone] SPOKE TO: DRAGAN
--- NOTE | 2020-12-11 22:05 | NUR ---
Spoke to Dr. Aaron MD informed that patient converted to AFIB with HR of 150. Orders to restart Cardizem Drip. Will carry out orders.
[2020-12-11] MEDS ORDERED: DILTIAZEM HCL 125 MG/25 ML VIAL IV ONE (22:15)
--- NOTE | 2020-12-11 22:30 | NUR ---
Spoke to patients sister and aunt, update given.
[2020-12-12] VITALS (33 sets, daily range): BP systolic 91–167
[2020-12-12] MEDS: methylPREDNISolone SOD SUCC/PF 62.5 MG/ML VIAL IVP SCH ×5 (00:58→23:48)
[2020-12-12] MEDS: INSULIN REGULAR, HUMAN 100 UNITS/ML, 10 ML VIAL (humuLIN R) SUBCUT PRN ×4 (01:00→17:25)
[2020-12-12] MEDS ORDERED: DILTIAZEM HCL 125 MG/25 ML VIAL IV ONE (01:49)
[2020-12-12 06:06] LABS: HEPATITIS B SURFACE AG Negative (Negative); HEPATITIS C VIRUS AB <0.1 s/co ratio (0.0-0.9)
[2020-12-12 06:26] LABS: BASOPHILS % (AUTO) 0.2 % (0.0-2.0); EOSINOPHILS # (AUTO) 0.1 K/uL (0.0-0.4); EOSINOPHILS % (AUTO) 2.5 % (0.0-4.0); HEMOGLOBIN 10.8 g/dL (12.0-16.0); LYMPHOCYTES # (AUTO) 0.3 K/uL (1.0-5.5); LYMPHOCYTES % (AUTO) 7.4 % (20.5-51.5); MEAN CORPUSCULAR HEMOGLOBIN 31 pg (27-31); MEAN CORPUSCULAR HGB CONC 34 % (32-36); MEAN CORPUSCULAR VOLUME 93 fL (79.0-98.0); MONOCYTES % (AUTO) 1.1 % (1.7-9.3); NEUTROPHILS # (AUTO) 3.5 K/uL (1.8-7.7); NEUTROPHILS % (AUTO) 88.8 % (40.0-70.0); PLATELET COUNT (AUTO) 68 K/uL (130-430); RED BLOOD CELL COUNT(AUTO) 3.45 MIL/uL (4.2-6.2); RED CELL DISTRIBUTION WIDTH 17.3 % (9.0-15.0); WHITE BLOOD COUNT (AUTO) 3.9 K/uL (4.8-10.8)
[2020-12-12 06:28] LABS: INR 1.8 (0.8-1.2); PROTHROMBIN TIME 18.9 SECS (9.5-12.5)
--- NOTE | 2020-12-12 07:12 | NUR ---
ENDORSEMENT PATIENT CARE ENDORSED TO RYAN TORRES.
--- NOTE | 2020-12-12 07:15 | NUR ---
RECEIVED REPORT FROM PM RN. PT STABLE, VSS, REMAINS ON LEVOPHED AND DIPRIVAN. PT TO HAVE DIALYSIS TODAY, AFEBRILE
[2020-12-12] MEDS: D5/0.45 NS 1,000 ML IV SCH (08:50)
[2020-12-12] MEDS: FUROSEMIDE 40 MG/4 ML VIAL IVP SCH ×2 (08:53→20:50)
[2020-12-12] MEDS: FAMOTIDINE PF 20 MG/2 ML VIAL IVP SCH ×2 (08:54→20:51)
--- NOTE | 2020-12-12 10:35 | NUR ---
AUNT, SENIOR JAVA J2EE DEVELOPER AT BEDSIDE WITH UPDATE. PT NOT TOLERATING WELL OF HEMODIALYSIS. PRESSURE UNSTABLE, PROVIDED ALBUMIN FOR JEWELRY DRILL OPERATOR TO HELP IMPROVE. MAX LEVOPHED CURRENTLY
[2020-12-12] MEDS ORDERED: ALBUMIN HUMAN 25% 100 ML IV ONE (10:39)
[2020-12-12 10:43] LABS: FIBRINOGEN 367 mg/dL (200-400)
--- NOTE | 2020-12-12 10:44 | NUR ---
CRITICAL LAB: Mervat from Laboratory called with critical lab value PTT >150 seconds. Medical record number and patient name verified. Read back of values done. Dr. Durán notified of value. No new orders given at this time.
[2020-12-12] MEDS ORDERED: HEPARIN SODIUM,PORCINE 5,000 UNITS/ML VIAL ONE (11:47)
[2020-12-12] MEDS ORDERED: HEPARIN SODIUM,PORCINE 5,000 UNITS/ML VIAL MC ONE (12:00)
[2020-12-12] MEDS: MEROPENEM 500 MG in NS 50 ML IV SCH ×2 (12:00→23:42)
[2020-12-12] MEDS: ALBUMIN HUMAN 25% 50 ML IV PRN (12:07)
[2020-12-12] MEDS: METOCLOPRAMIDE HCL 10 MG/2 ML VIAL IVP SCH ×3 (12:23→23:47)
[2020-12-12] MEDS ORDERED: PHENYLEPHRINE HCL 100 MG in NS 240 ML IV PRN (12:30)
--- NOTE | 2020-12-12 15:30 | NUR ---
STARTED PATIENT ON AMIODARONE DRIP PER DR. VALDEZ. 6 HOURS AT 1MG/MIN FOLLOWED BY 0.5MG/MIN FOR 18 HOURS PER WRITTEN ORDER. CARDIZEM DRIP STOPPED FOR NOW.
[2020-12-12] MEDS: AMIODARONE HCL 450 MG in D5W 241 ML IV SCH (15:31)
--- NOTE | 2020-12-12 20:00 | NUR ---
ORALLY INTUBATED. RESPONDS TO NOXIOUS STIMULI. SUCTIONED WITH SMALL AMOUNT OF THIN WHITE MUCUS OBTAINED. ORAL CARE GIVEN. OGT FEEDING WITH NEPRO AT 10CC/HR. RESIDUAL CHECK 30CC. RIJ TLC DRSG D/I. ON AMIODARONE DRIP AT 1 MG/MIN. ON LEVOPHED AT 0.13 MCG/KG/MIN. BP 139/91, LEVOPHED TITRATED DOWN TO 0.1 MCG/KG/MIN. HOPKINS CATH PATENT DRAINING OLIGURIC URINE TO GRAVITY. LEFT GROIN TRICIA CATH DRSG D/I. AFIB.
--- NOTE | 2020-12-12 21:30 | NUR ---
AMIODARONE DRIP DECREASED TO 0.5 MG/MIN.
--- NOTE | 2020-12-12 22:30 | NUR ---
HS CARE GIVEN.
[2020-12-13] VITALS (29 sets, daily range): BP systolic 93–155
--- NOTE | 2020-12-13 | NUR ---
SUCTIONED. ORAL CARE DONE. RESIDUAL CHECK 5CC, OGT FLUSHED WITH 100CC H2O. ACCU-CHEK 408, REPEAT ACCU-CHEK 460. 12 UNITS REGULAR INSULIN SQ GIVEN. DR TEMPLE NOTIFIED OF BLOOD SUGAR, ORDERED TO GIVE 2 MORE UNITS REGULAR INSULIN SQ. IMPLEMENTED.
[2020-12-13] MEDS: INSULIN REGULAR, HUMAN 100 UNITS/ML, 10 ML VIAL (humuLIN R) SUBCUT PRN ×4 (00:10→17:24)
[2020-12-13] MEDS ORDERED: INSULIN REGULAR, HUMAN 100 UNITS/ML, 10 ML VIAL SUBCUT ONE ×3 (00:45→18:00)
[2020-12-13] MEDS: D5/0.45 NS 1,000 ML IV SCH ×2 (01:18→21:15)
[2020-12-13] MEDS ORDERED: AMIODARONE HCL 450 MG/9 ML VIAL IV ONE (01:47)
[2020-12-13] MEDS: AMIODARONE HCL 450 MG in D5W 241 ML IV SCH ×2 (01:56→16:39)
--- NOTE | 2020-12-13 02:00 | NUR ---
ASLEEP. SUCTIONED. REPOSITIONED.
--- NOTE | 2020-12-13 05:00 | NUR ---
SUCTIONED. ORAL CARE GIVEN. PARTIAL CHG BATH GIVEN. PARTIAL LINEN CHANGE. PT'S AUNELIAS MERCADO CALLED, QUESTIONS ANSWERED. WANTS TO BE CALLED BY AN CARTON LETTERING MACHINE OPERATOR. TO BE RELAYED.
[2020-12-13] MEDS: NOREPINEPHRINE BITARTRATE 16 MG in NS 234 ML IV PRN (05:53)
--- NOTE | 2020-12-13 06:00 | NUR ---
SUCTIONED Q2 HRS AND PRN. OGT FLUSHED WITH 100CC H2O. UO 10CC. ACCU-CHEK 486, 12 UNITS REGULAR INSULIN SQ GIVEN. DR TEMPLE NOTIFIED OF BLOOD SUGAR, ORDERED TO GIVE 8 MORE UNITS OF REGULAR INSULIN. CARRIED OUT.
[2020-12-13] MEDS: methylPREDNISolone SOD SUCC/PF 62.5 MG/ML VIAL IVP SCH ×3 (06:17→17:15)
[2020-12-13] MEDS: METOCLOPRAMIDE HCL 10 MG/2 ML VIAL IVP SCH ×3 (06:17→17:14)
--- NOTE | 2020-12-13 07:45 | NUR ---
RN NOTES STILL ON THE VENT, ON SAME SETTING, SPO2 GOOD. ON LEVOPHED DRIP AT 0.07 MCG/KG MIN.
--- NOTE | 2020-12-13 08:20 | NUR ---
MD VISIT DR. SONG HERE TO SEE PATIENT, WITH ORDERS CARRIED OUT.
[2020-12-13] MEDS: FUROSEMIDE 40 MG/4 ML VIAL IVP SCH ×2 (09:38→23:23)
[2020-12-13] MEDS: FAMOTIDINE PF 20 MG/2 ML VIAL IVP SCH ×2 (09:38→23:23)
[2020-12-13] MEDS: LEVOFLOXACIN 250 MG/D5W 50 ML IV SCH (09:39)
--- NOTE | 2020-12-13 10:00 | NUR ---
RN NOTES NEPRO FEEDING AT 10 CC/HR. SINUS RHYTHM ON THE MONITOR.
[2020-12-13 11:29] LABS: HEMATOCRIT 29.1 % (36-48); HEMOGLOBIN 9.7 g/dL (12.0-16.0); MEAN CORPUSCULAR HEMOGLOBIN 31 pg (27-31); MEAN CORPUSCULAR HGB CONC 33 % (32-36); MEAN CORPUSCULAR VOLUME 93 fL (79.0-98.0); RED BLOOD CELL COUNT(AUTO) 3.15 MIL/uL (4.2-6.2); RED CELL DISTRIBUTION WIDTH 17.6 % (9.0-15.0); WHITE BLOOD COUNT (AUTO) 4.8 K/uL (4.8-10.8)
[2020-12-13 11:49] LABS: PLATELET COUNT (AUTO) 9 K/uL (130-430)
[2020-12-13] MEDS ORDERED: PHYTONADIONE 10 MG in NS 50 ML IV ONE (12:00)
[2020-12-13] MEDS: MEROPENEM 500 MG in NS 50 ML IV SCH ×2 (12:03→23:23)
[2020-12-13 13:39] LABS: BAND % (MANUAL) 9 % (0-6); BASOPHILS % (MANUAL) 0 % (0-2); CORRECTED WHITE BLOOD COUNT 4.3 K/uL (4.5-11.0); EOSINOPHILS % (MANUAL) 1 % (0-7); LYMPHOCYTES % (MANUAL) 17 % (20-46); MONOCYTES % (MANUAL) 11 % (0-11)
--- NOTE | 2020-12-13 15:35 | NUR ---
Blood transfusion Initiated 1 unit FFP blood transfusion per MD order. Vitals stable with levophed drip, T 99.
--- NOTE | 2020-12-13 16:35 | NUR ---
BS 435. Administered insulin SQ per protocol and aj OCONNELL. Addendum: 12/13/20 at 1801 by Kami Mina RN CORRECTION: WRONG TIME
--- NOTE | 2020-12-13 17:20 | NUR ---
BS 435. Administered insulin SQ per protocol and aj OCONNELL.
--- NOTE | 2020-12-13 17:59 | NUR ---
HIGH ALERT NOTE: Called Dr. Alvarado back identified within the medical roster to verify physician authenticity.
--- NOTE | 2020-12-13 20:00 | NUR ---
ASSESSMENT Pt resting quietly, Tolerating current vent settings. Right IJ TLC patent with IVF infusing. Dressing dry and intact. El preset right femoral dressing intact. Skin discolored with bruising, blisters are present, some intact others open. Dressings present bilateral legs and feet.
--- NOTE | 2020-12-13 23:00 | NUR ---
TRANSFER OF CARE Care transferred to Gina TORRES.
[2020-12-13] MEDS: PROPOFOL DRIP 100 ML IV PRN (23:10)
[2020-12-14] VITALS (31 sets, daily range): BP systolic 84–169
--- NOTE | 2020-12-14 | NUR ---
CENTRAL line dressing change. Done sterile technique. Addendum: 12/15/20 at 0431 by Marilyn Deng RN wrong date
[2020-12-14] MEDS: METOCLOPRAMIDE HCL 10 MG/2 ML VIAL IVP SCH ×4 (00:13→17:53)
[2020-12-14] MEDS: methylPREDNISolone SOD SUCC/PF 62.5 MG/ML VIAL IVP SCH ×4 (00:13→17:56)
--- NOTE | 2020-12-14 00:25 | NUR ---
MD [facility] [phone] SPOKE WITH DEAN
[2020-12-14] MEDS: INSULIN REGULAR, HUMAN 100 UNITS/ML, 10 ML VIAL (humuLIN R) SUBCUT PRN ×2 (00:27→05:43)
[2020-12-14] MEDS ORDERED: INSULIN REGULAR, HUMAN 100 UNITS/ML, 10 ML VIAL SUBCUT ONE ×2 (00:45→05:45)
[2020-12-14] MEDS: D5/0.45 NS 1,000 ML IV SCH (01:49)
--- NOTE | 2020-12-14 03:05 | NUR ---
2300 TOOK OVER CARE FROM KAYLEIGH TORRES.
--- NOTE | 2020-12-14 03:07 | NUR ---
0015 BS-[id number] TEMPLE ADDED EXTRA 4 UNIT OF INSULIN COVERAGE.
[2020-12-14 05:28] LABS: INR 1.1 (0.8-1.2); PROTHROMBIN TIME 11.2 SECS (9.5-12.5)
[2020-12-14 06:23] LABS: HEMOGLOBIN 7.8 g/dL (12.0-16.0); MEAN CORPUSCULAR HEMOGLOBIN 33 pg (27-31); MEAN CORPUSCULAR HGB CONC 36 % (32-36); MEAN CORPUSCULAR VOLUME 92 fL (79.0-98.0); PLATELET COUNT (AUTO) 107 K/uL (130-430); RED BLOOD CELL COUNT(AUTO) 2.39 MIL/uL (4.2-6.2); RED CELL DISTRIBUTION WIDTH 17.3 % (9.0-15.0); WHITE BLOOD COUNT (AUTO) 5.8 K/uL (4.8-10.8)
[2020-12-14] MEDS ORDERED: AMIODARONE HCL 200 MG TABLET NG ONE (09:00)
[2020-12-14] MEDS: FAMOTIDINE PF 20 MG/2 ML VIAL IVP SCH ×2 (09:05→20:21)
[2020-12-14] MEDS: FUROSEMIDE 40 MG/4 ML VIAL IVP SCH ×2 (09:06→20:20)
[2020-12-14 09:07] LABS: CALCIUM 7.3 mg/dL (8.4-11.0); CREATININE 2.02 mg/dL (0.55-1.30); POTASSIUM 4.4 mmol/L (3.5-5.1)
[2020-12-14] MEDS: NACL 0.9% 1,000 ML IV SCH (09:07)
[2020-12-14] MEDS ORDERED: FAMOTIDINE PF 20 MG/2 ML VIAL ONE (09:09)
[2020-12-14 09:14] LABS: ALBUMIN 1.2 g/dL (3.4-4.8); TOTAL BILIRUBIN 6.2 mg/dL (0.0-1.0)
--- NOTE | 2020-12-14 09:24 | NUR ---
CRITICAL LAB RESULT BD 567, DR. ALBERTO AT BEDSIDE, TOLD MD IN PERSON. MD TO PLACE NEW ORDERS.
--- NOTE | 2020-12-14 09:36 | NUR ---
ENDO CONSULT CALLED AND SPOKE TO DR LINCOLN SAYED, WILL COME IN TO SEE THE PATIENT.
--- NOTE | 2020-12-14 10:05 | NUR ---
rt notes 1005 Placed pt on CPAP 5, PS 8, 30% FIO2, Pt saturating 92%, jessica well. RN Miri aware. will continue to monitor pt.
--- NOTE | 2020-12-14 10:17 | NUR ---
FSBS DR LINCOLN SAYED IN THE UNIT AND ASKED TO CHECK PT'S BLOOD SUGAR, 445 MG/DL.
--- NOTE | 2020-12-14 10:38 | NUR ---
INSULIN. DR LINCOLN SAYED ORDERED TO GIVE NPH 25 UNITS SQ AND HUMALOG 15 UNITS SQ NOW. THEN RE CHECK BLOOD SUGAR AT 1400. ORDERS CARRIED OUT.
[2020-12-14] MEDS ORDERED: D5W 1,000 ML IV PRN (10:45)
[2020-12-14] MEDS ORDERED: GLUCOSE (DEXTROSE) ORAL GEL -Adults PO PRN (10:45)
[2020-12-14 11:00] LABS: BAND % (MANUAL) 6 % (0-6); BASOPHILS % (MANUAL) 0 % (0-2); CORRECTED WHITE BLOOD COUNT 4.9 K/uL (4.5-11.0); EOSINOPHILS % (MANUAL) 0 % (0-7); LYMPHOCYTES % (MANUAL) 14 % (20-46); METAMYELOCYTES % 1 % (0-0); MONOCYTES % (MANUAL) 7 % (0-11)
--- NOTE | 2020-12-14 11:04 | NUR ---
FAMILY PT'S AUNT ROGELIO CALLED UP, UPDATE GIVEN ON PT'S STATUS
[2020-12-14] MEDS ORDERED: INSULIN NPH 100 UNITS/ML 10 ML VIAL SUBCUT ONE (11:15)
[2020-12-14] MEDS ORDERED: INSULIN Lispro 100 UNITS/ML VIAL (humaLOG) SUBCUT ONE (11:15)
--- NOTE | 2020-12-14 11:30 | NUR ---
rt notes 1130 Pt switched back to AC mode due to pt will have dialysis, pt saturating 92%. will continue to monitor pt. MELISSA mustafa.
--- NOTE | 2020-12-14 11:40 | NUR ---
DIALYSIS. TREATMENT IN PROGRESS.
[2020-12-14] MEDS ORDERED: INSULIN LISPRO SLIDING SCALE 100 UNITS/ML VIAL (humaLOG) SUBCUT PRN (12:00)
[2020-12-14] MEDS: NOREPINEPHRINE BITARTRATE 16 MG in NS 234 ML IV PRN ×2 (13:31→21:00)
[2020-12-14] MEDS ORDERED: HEPARIN SODIUM, PORCINE 10,000 UNITS/ 10 ML VIAL MC ONE (14:30)
[2020-12-14] MEDS: ALBUMIN HUMAN 25% 50 ML IV PRN (14:40)
[2020-12-14] MEDS ORDERED: HEPARIN SODIUM,PORCINE 5,000 UNITS/ML VIAL ONE (14:40)
--- NOTE | 2020-12-14 14:50 | NUR ---
LEFT MESSAGE FOR DR LINCOLN SAYED ON SLIDING SCALE PROTOCOL. BLOOD SUGAR 403 MG/DL.
[2020-12-14] MEDS: MEROPENEM 500 MG in NS 50 ML IV SCH ×2 (14:56→23:05)
--- NOTE | 2020-12-14 15:11 | NUR ---
MD DR LINCOLN SAYED RETURNED THE CALL, PT ALREADY RECEIVED 16 UNITS HUMALOG FROM SLIDING SCALE, ORDERED TO RE-CHECK PT'S BLOOD SUGAR AND CALL HIM BACK ON RESULT.
[2020-12-14] MEDS ORDERED: INSULIN REGULAR, HUMAN 100 UNITS in NS 99 ML IV PRN ×4 (18:45)
[2020-12-14] MEDS ORDERED: DEXTROSE 50% JECT 50 ML DISP.SYRIN IVP PRN (18:45)
--- NOTE | 2020-12-14 18:53 | NUR ---
HUMALOG PER SLIDING SCALE GIVEN 16 UNITS FOR BLOOD SUGAR OF 423, PENDING INSULIN DRIP FROM PHARMACY AT THIS TIME. VERIFIED WITH 2ND RN (SUKH).
--- NOTE | 2020-12-14 20:00 | NUR ---
INSULIN DRIP Witnessed MELISSA Sanders titrate Insulin Drip to 6units/hr.
[2020-12-14] MEDS: AMIODARONE HCL 200 MG TABLET NG SCH (20:21)
[2020-12-14] MEDS ORDERED: NOREPINEPHRINE 4 MG/4 ML VIAL IV ONE (20:25)
[2020-12-14] MEDS ORDERED: INSULIN NPH 100 UNITS/ML 10 ML VIAL SUBCUT SCH (21:00)
[2020-12-14] MEDS ORDERED: INSULIN GLARGINE 100 UNITS/ML 10 ML VIAL SUBCUT SCH (21:00)
--- NOTE | 2020-12-14 21:00 | NUR ---
Started patient on insulin drip
--- NOTE | 2020-12-14 22:00 | NUR ---
INSULIN DRIP Witnessed MELISSA Sanders titrate Insulin Drip to 4 units/hr.
--- NOTE | 2020-12-14 22:00 | NUR ---
Family Family called. updated annalisa and answered all questions.
--- NOTE | 2020-12-14 23:00 | NUR ---
INSULIN DRIP Witnessed MELISSA Sanders titrate Insulin Drip to 3 units/hr.
--- NOTE | 2020-12-14 23:09 | NUR ---
PAGED DR. VALDEZ [phone] SPOKE WITH DARIN
[2020-12-15] VITALS (31 sets, daily range): BP systolic 105–165
--- NOTE | 2020-12-15 | NUR ---
CENTRAL line dressing change. Done sterile technique.
--- NOTE | 2020-12-15 | NUR ---
INSULIN DRIP Witnessed MELISSA Sanders titrate Insulin Drip to 4 units/hr.
[2020-12-15] MEDS: METOCLOPRAMIDE HCL 10 MG/2 ML VIAL IVP SCH ×5 (00:28→23:36)
[2020-12-15] MEDS: methylPREDNISolone SOD SUCC/PF 62.5 MG/ML VIAL IVP SCH ×3 (00:28→18:42)
--- NOTE | 2020-12-15 01:00 | NUR ---
INSULIN DRIP Witnessed MELISSA Sanders titrate Insulin Drip to 7 units/hr.
--- NOTE | 2020-12-15 03:00 | NUR ---
INSULIN DRIP Witnessed MELISSA Sanders titrate Insulin Drip to 8 units/hr.
--- NOTE | 2020-12-15 06:00 | NUR ---
INSULIN DRIP Witnessed MELISSA Sanders titrate Insulin Drip to 7 units/hr.
--- NOTE | 2020-12-15 07:48 | NUR ---
INSULIN DRIP BLOOD SUGAR 351 MG/DL, TITRATED DRIP TO 8 UNIT PER HR.
--- NOTE | 2020-12-15 07:49 | NUR ---
Witnessed insulin drip at 8 units/hr
--- NOTE | 2020-12-15 08:33 | NUR ---
FAMILY ROGELIO, PT'S AUNT CALLED AND SHE ASKED AND UPDATES GIVEN.
[2020-12-15] MEDS: NACL 0.9% 1,000 ML IV SCH (08:52)
[2020-12-15] MEDS: FAMOTIDINE PF 20 MG/2 ML VIAL IVP SCH ×2 (08:53→20:12)
[2020-12-15] MEDS: LEVOFLOXACIN 250 MG/D5W 50 ML IV SCH (08:53)
[2020-12-15] MEDS: AMIODARONE HCL 200 MG TABLET NG SCH ×2 (08:54→20:12)
[2020-12-15] MEDS: FUROSEMIDE 40 MG/4 ML VIAL IVP SCH ×2 (08:54→20:12)
--- NOTE | 2020-12-15 08:58 | NUR ---
INSULIN DRIP. BLOOD SUGAR 343 MG/DL, DRIP REMAINED AT 8 UNIT PER HR.
--- NOTE | 2020-12-15 08:59 | NUR ---
Witnessed insulin drip infusing at 8 units per hour.
--- NOTE | 2020-12-15 09:15 | NUR ---
LOC. CALLED OUT PT'S NAME, SHE HAD HER RIGHT EYE SLIGHTLY OPENED, THEN CLOSED HER EYE, GENERALIZED EDEMA, MILD BLEEDING FROM HER MOUTH, ORAL CARE DONE, CONTINUE TO MONITOR PATIENT.
--- NOTE | 2020-12-15 09:47 | NUR ---
INSULIN DRIP BLOOD SUGAR 328 MG/DL, TITRATED DRIP TO 7 UNIT PER HR.
--- NOTE | 2020-12-15 09:48 | NUR ---
Witnessed insulin drip at 7 units per/hr for accucheck 328.
[2020-12-15 09:52] LABS: BASOPHILS % (AUTO) 0.2 % (0.0-2.0); HEMATOCRIT 23.7 % (36-48); HEMOGLOBIN 8.1 g/dL (12.0-16.0); LYMPHOCYTES # (AUTO) 2.3 K/uL (1.0-5.5); LYMPHOCYTES % (AUTO) 16.7 % (20.5-51.5); MEAN CORPUSCULAR HEMOGLOBIN 31 pg (27-31); MEAN CORPUSCULAR HGB CONC 34 % (32-36); MEAN CORPUSCULAR VOLUME 91 fL (79.0-98.0); MONOCYTES # (AUTO) 0.1 K/uL (0.0-1.0); NEUTROPHILS # (AUTO) 11.4 K/uL (1.8-7.7); RED CELL DISTRIBUTION WIDTH 16.5 % (9.0-15.0); WHITE BLOOD COUNT (AUTO) 13.9 K/uL (4.8-10.8)
[2020-12-15 10:15] LABS: PLATELET COUNT (AUTO) 9 K/uL (130-430)
[2020-12-15 10:16] LABS: NEUTROPHILS % (AUTO) 82.1 % (40.0-70.0)
--- NOTE | 2020-12-15 10:52 | NUR ---
ABN PLATELET COUNT DR ESQUIVEL RETURNED THE CALL, HE STATED THAT HE WILL NOT ORDER TRANSFUSION BUT WILL CHANGE SOME MEDICATION DOSE.
--- NOTE | 2020-12-15 10:55 | NUR ---
MD DR ALBERTO IN THE ROOM ANS EXAMINED PT. AWARE OF LOW PLATELET COUNT.
[2020-12-15] MEDS ORDERED: methylPREDNISolone SOD SUCC/PF 62.5 MG/ML VIAL IVP ONE (11:00)
--- NOTE | 2020-12-15 11:00 | NUR ---
SKIN CARE. ALL WOUND DRESSINGS CAREFULLY REMOVED FROM LEGS AND LEFT BUTTOCK. WOUND CLEANSED WITH SALINE, BLISTERS/BULLA/ SKIN TEARS PRESENT. SKIN SLIPPERY AND WEEPING TO BOTH ARMS AND LOWER EXTREMITIES. WOUND CARE DONE. HYDROGEL, MOISTURE BARRIER CREAM, FOAM DRESSING TO COVER AND WRAPPED LARGE AREA WOUNDS IN BRANDO WRAP. LEGS ELEVATED ON PILLOW AFTER CARE. PT INCONTINENT OF BOWEL, GOOD PERINEAL HYGIENE PROVIDED, USING SOAPY TOWEL, RINSED SKIN WITH WET TOWEL, AND SHEETS CHANGED.
--- NOTE | 2020-12-15 11:02 | NUR ---
INSULIN DRIP. BLOOD SUGAR 325 MG/DL, DRIP REMAINED AT 7 UNIT PER HR.
--- NOTE | 2020-12-15 11:02 | NUR ---
Witnessed insulin drip at 7 units/hr for accu check of 325.
--- NOTE | 2020-12-15 11:30 | NUR ---
FAMILY PT'S MOTHER AND HER AUNT AT BEDSIDE VISITING.
--- NOTE | 2020-12-15 12:10 | NUR ---
Witnessed insulin drip at 6 units/hr for accu check of 292.
--- NOTE | 2020-12-15 12:10 | NUR ---
INSULIN DRIP. BLOOD SUGAR 292 MG/DL, TITRATED DRIP TO 6 UNIT PER HR.
[2020-12-15] MEDS: MEROPENEM 500 MG in NS 50 ML IV SCH ×2 (12:12→22:50)
--- NOTE | 2020-12-15 13:21 | NUR ---
Witnessed insulin drip at 6 units/hr for accu check of 295.
--- NOTE | 2020-12-15 13:21 | NUR ---
INSULIN DRIP BLOOD SUGAR 295 MG/DL, REMAINED AT 6 UNIT PER HR.
[2020-12-15] MEDS: INSULIN REGULAR, HUMAN 100 UNITS in NS 99 ML IV PRN ×2 (13:24)
--- NOTE | 2020-12-15 14:09 | NUR ---
Nutrition F/U Admitting Diagnosis: Septic Shock Medical History Comment: Pt w/: pneumonia, son ST-elevation myocardial infarction, acute kidney injury, thrombocytopenia, lymphopenia. PMH: diabetes 12/10 MD notes: Right foot wound infection 2/2 enteroccous Facealis, left foot wound infection 2/2 klebsiella pneumoniae SARS-CoV-2 Ag Rapid Negative 12/05 Subjective Information: RD rounded to ICU and visited pt's room. Pt's mother and aunt were present at bedside. Pt remains intubated on vent, but no longer receiving propofol. TF was seen infusing as per physician order -- 174 ml infused, providing 313 kcal. Pt's primary RN was at lunch break during RD rounds to unit. Current Diet Order/Nutrition Support: Nepro at 40 ml/hr (goal rate), Ever BID, Free Water Flush: [id number] ML (per physician) via NGT x3 days Pertinent Medications: reglan, lasix, pepcid, IV ALB Pertinent Labs: 12/14: Na 127 L, K 4.4 WNL, BUN 59 H, CRE 2.02 H, BG 567 H, POC BG 308-358 H, Phos 5.1 H, AST 92 H, WBC 13.9 H Height: 5'5" Weight: 200#, 91 kg (12/07) -- stable Body Mass Index: 33.28 kg/m2 [place]/Adjusted Body Weight: 125#/57kg NEW Estimated Energy Expenditure (kcals/day) (Tmax: 37.1'C; Ve: 11.4) 1849 Kcal/day (PSU for critical care, intubated onvent) Estimated Protein Required (g/day) 68-86 gm/day (1.2-1.5 gm/kg IBW for JOSUE on HD) Estimated Fluid Required (l/day) per MD (JOSUE and diuretic administration) Problem/Etiology/Signs/Symptoms Inadequate intake r/t intubated status AEB NPO x 2 days since admission. (*improving, pt is on EN support) Increased protein-calorie needs r/t metabolic demands AEB estimated calorie and protein for JOSUE and plan to be on HD (*ongoing) Expected Outcomes/Goals Monitor EN tolerance and intake w/ goal of pt meeting more than 75% of estimated nutritional needs, labs trending WNL, normal GI function, skin integrity/wt maintenance. Dietitian Recommendations * Recommend Nepro at 40 ml/hr (goal rate), Ever BID, Free Water Flush: [id number] ML (per physician) via NGT Provides: 1888 kcal/day, 83 gm protein/day, and 1298 ml free water flush/day Meets: 102% of estimated caloric needs and 97% of upper end of estimated protein needs Follow Up High Risk: F/U in 2-3 days Addendum: 12/15/20 at [address] RD called ICU and spoke w/ pt's primary RN who reported that pt has been tolerating TF well, and receiving Ever BID order. She stated that she will clarify water flush w/ stock crane operator as 100 ml Q4h may be too much. No pending plans/procedures mentioned.
--- NOTE | 2020-12-15 14:17 | NUR ---
PULMONOLGIST CALLED UP DR SONG TO CLARIFY ON TRANSFUSION ORDERS, AND HE CANCELLED HIS ORDERS.
--- NOTE | 2020-12-15 14:21 | NUR ---
Dietitian Recommendations * Recommend Nepro at 40 ml/hr (goal rate), Ever BID, Free Water Flush: [id number] ML (per physician) via NGT Provides: 1888 kcal/day, 83 gm protein/day, and 1298 ml free water flush/day Meets: 102% of estimated caloric needs and 97% of upper end of estimated protein needs LP, RD Please refer to Nutrition F/U for details.
--- NOTE | 2020-12-15 14:21 | NUR ---
Witnessed insulin drip at 6 units/hr for accu check of 278.
--- NOTE | 2020-12-15 15:16 | NUR ---
Witnessed insulin drip at 6 units/hr for accu check of 275.
[2020-12-15] MEDS: NOREPINEPHRINE BITARTRATE 16 MG in NS 234 ML IV PRN (16:11)
--- NOTE | 2020-12-15 16:38 | NUR ---
RECLAIMER DR VERDE CAME IN AND EXAMINED PT. PT ON NEPRO VIA OGT, WATER FLUSHES MAY BE DISREGARDED, SODIUM LEVEL 127.
[2020-12-15] MEDS: PEG 400/HYPROMELLOSE/GLYCERIN 15 ML DROPS OP SCH ×2 (17:06→20:13)
--- NOTE | 2020-12-15 17:06 | NUR ---
INSULIN DRIP. BLOOD SUGAR 253 MG/DL, TITRATED DRIP TO 5 UNIT PER HR.
[2020-12-15] MEDS ORDERED: COMMUNICATION ORDER XX ONE (19:00)
--- NOTE | 2020-12-15 19:00 | NUR ---
LOCOMOTIVE ELECTRICIAN DR DELATORRE CALLED TO GET UPDATE ON PT'S BLOOD SUGAR. AWARE OF ALL READINGS AND RESULTS FROM TODAY. HE ORDERED TO PUT PT ON INSULIN DRIP AT 6 UNIT PER HR AND ORDERS CARRIED OUT. LATEST BLOOD SUGAR 263 MG/DL.
--- NOTE | 2020-12-15 19:30 | NUR ---
Opening Note Received report from AM nurse using SBAR approach
[2020-12-16] VITALS (31 sets, daily range): BP systolic 94–132
[2020-12-16] MEDS: methylPREDNISolone SOD SUCC/PF 62.5 MG/ML VIAL IVP SCH ×3 (03:50→18:36)
--- NOTE | 2020-12-16 04:30 | NUR ---
Family Family, Mayte, called and asked for an update. Provided update and answered all questions.
--- NOTE | 2020-12-16 05:00 | NUR ---
BM Patient had a large BM. Redid wound care and dressing care. Patient tolerated well
[2020-12-16] MEDS: METOCLOPRAMIDE HCL 10 MG/2 ML VIAL IVP SCH ×4 (06:22→23:50)
--- NOTE | 2020-12-16 07:02 | NUR ---
MD Dr. Cronin came to assess patient's insulin. stated to increase patient's insulin drip to 7 units/hr until blood sugar is less than 150.
[2020-12-16 07:04] LABS: ALBUMIN 1.4 g/dL (3.4-4.8); CALCIUM 7.5 mg/dL (8.4-11.0); CREATININE 1.91 mg/dL (0.55-1.30); POTASSIUM 3.1 mmol/L (3.5-5.1)
[2020-12-16 07:27] LABS: HEMATOCRIT 23.4 % (36-48); HEMOGLOBIN 7.8 g/dL (12.0-16.0); MEAN CORPUSCULAR HEMOGLOBIN 31 pg (27-31); MEAN CORPUSCULAR HGB CONC 33 % (32-36); MEAN CORPUSCULAR VOLUME 91 fL (79.0-98.0); RED BLOOD CELL COUNT(AUTO) 2.57 MIL/uL (4.2-6.2); RED CELL DISTRIBUTION WIDTH 16.4 % (9.0-15.0); WHITE BLOOD COUNT (AUTO) 11.2 K/uL (4.8-10.8)
[2020-12-16 07:36] LABS: PLATELET COUNT (AUTO) 7 K/uL (130-430)
[2020-12-16] MEDS: INSULIN REGULAR, HUMAN 100 UNITS in NS 99 ML IV PRN ×2 (08:39)
[2020-12-16 08:53] LABS: TOTAL BILIRUBIN 7.5 mg/dL (0.0-1.0)
[2020-12-16] MEDS: NACL 0.9% 1,000 ML IV SCH (09:00)
[2020-12-16] MEDS: FUROSEMIDE 40 MG/4 ML VIAL IVP SCH ×2 (09:22→20:07)
[2020-12-16] MEDS: AMIODARONE HCL 200 MG TABLET NG SCH ×2 (09:23→20:07)
[2020-12-16] MEDS: FAMOTIDINE PF 20 MG/2 ML VIAL IVP SCH ×2 (09:23→20:07)
[2020-12-16] MEDS: PEG 400/HYPROMELLOSE/GLYCERIN 15 ML DROPS OP SCH ×4 (09:24→20:08)
[2020-12-16 10:05] LABS: BAND % (MANUAL) 8 % (0-6); BASOPHILS % (MANUAL) 0 % (0-2); CORRECTED WHITE BLOOD COUNT 8.5 K/uL (4.5-11.0); EOSINOPHILS % (MANUAL) 0 % (0-7); LYMPHOCYTES % (MANUAL) 2 % (20-46); MONOCYTES % (MANUAL) 1 % (0-11)
--- NOTE | 2020-12-16 19:18 | NUR ---
0900: Dr. Morgan informed of Plt of 7. No order given by Dr. Morgan. Dr. Morgan stated to observe patient. No Bleeding noted all through the shift. Report given to the Rice Drier RN that will continue with the care of this patient. All stated protocols remain effective.
--- NOTE | 2020-12-16 19:30 | NUR ---
Opening Note Received report from AM nurse using SBAR approach.
[2020-12-17] VITALS (34 sets, daily range): BP systolic 89–151
--- NOTE | 2020-12-17 | NUR ---
Wound Care Performed wound care on patient according to wound care protocol.
[2020-12-17] MEDS: NOREPINEPHRINE BITARTRATE 16 MG in NS 234 ML IV PRN (02:00)
--- NOTE | 2020-12-17 02:30 | NUR ---
MD Dr. Sebastian came to see patient. NO new orders.
[2020-12-17] MEDS: methylPREDNISolone SOD SUCC/PF 62.5 MG/ML VIAL IVP SCH ×3 (04:04→18:00)
[2020-12-17] MEDS: METOCLOPRAMIDE HCL 10 MG/2 ML VIAL IVP SCH ×4 (05:46→23:20)
[2020-12-17] MEDS: INSULIN REGULAR, HUMAN 100 UNITS in NS 99 ML IV PRN ×2 (06:31)
--- NOTE | 2020-12-17 08:00 | NUR ---
Recv report fr Sanders rn , patient is in bed , lethargic, nods head with verbal commands, patient is orally intubated with minimum settings, og tube with feeding of nepro at 40 ml/hr, telemetry shows normal sinus rhythm, patient w/ f/c but with oliguric with minimal urine, skin mottled , multiple wound fr lower extremities, wound care was done by cassy schroeder, i will continue nursing care and interventions.
[2020-12-17] MEDS ORDERED: PROPOFOL DRIP 100 ML IV PRN (08:15)
[2020-12-17] MEDS ORDERED: INSULIN REGULAR, HUMAN 100 UNITS in NS 99 ML IV PRN ×2 (08:30)
--- NOTE | 2020-12-17 08:30 | NUR ---
Dr. Rachel came to see the patient, we checked bs is 201, patient is currently on insulin drip at 7 un/hr, dr Rachel said to increased insulin drip to 7.5 un/hr, and if bs is between 140 to 240, changed accucheck to q @hrs, patient is currently on tube feeding, inslin drip, and levophed drip.
--- NOTE | 2020-12-17 08:30 | NUR ---
DR. HERNANDEZ ROUNDED ON PATIENT, RECOMMENDED SURGERY ASSESS PATIENTS BLE. WILL MAKE PRIMARY AWARE.
[2020-12-17 08:45] LABS: HEMATOCRIT 25.5 % (36-48); HEMOGLOBIN 8.5 g/dL (12.0-16.0); MEAN CORPUSCULAR HEMOGLOBIN 31 pg (27-31); MEAN CORPUSCULAR HGB CONC 33 % (32-36); MEAN CORPUSCULAR VOLUME 93 fL (79.0-98.0); RED BLOOD CELL COUNT(AUTO) 2.75 MIL/uL (4.2-6.2); RED CELL DISTRIBUTION WIDTH 17.4 % (9.0-15.0); WHITE BLOOD COUNT (AUTO) 14.8 K/uL (4.8-10.8)
[2020-12-17 08:50] LABS: PLATELET COUNT (AUTO) 13 K/uL (130-430)
--- NOTE | 2020-12-17 09:00 | NUR ---
Dr. Bowles came to see the patient, he said that patient responses by nodding head, he looked at patient's wound, he said to consult dr marshall to see the patient.
--- NOTE | 2020-12-17 09:00 | NUR ---
DR. VALDEZ ROUNDING ON PATIENT, VERBAL REPORT GIVEN, NO NEW ORDERS AT THIS TIME.
--- NOTE | 2020-12-17 09:15 | NUR ---
DR. SAHA ([facility]) ROUNDING ON PATIENT, REPORT GIVEN AND NEW ORDERS GIVEN VERBALLY TO PRIMARY CARE NURSE.
--- NOTE | 2020-12-17 09:30 | NUR ---
DR. ALBERTO ROUNDING ON PATIENT, VERBAL ORDER OBTAINED FOR CONSULT TO SURGERY DR. ROLLE.
[2020-12-17] MEDS: FAMOTIDINE PF 20 MG/2 ML VIAL IVP SCH ×2 (09:46→20:16)
[2020-12-17] MEDS: AMIODARONE HCL 200 MG TABLET NG SCH ×2 (09:47→20:17)
[2020-12-17] MEDS: LEVOFLOXACIN 250 MG/D5W 50 ML IV SCH (09:47)
[2020-12-17] MEDS: PEG 400/HYPROMELLOSE/GLYCERIN 15 ML DROPS OP SCH ×4 (09:48→20:17)
[2020-12-17] MEDS: NACL 0.9% 1,000 ML IV SCH (09:49)
--- NOTE | 2020-12-17 10:00 | NUR ---
Turned and repositioned the patient, patient's hr went into afib, labile fr 110 to 140, will monitor patient closely, current bs is 181, no changes on insulin drip.
[2020-12-17 11:03] LABS: INR 0.9 (0.8-1.2); PROTHROMBIN TIME 9.5 SECS (9.5-12.5)
[2020-12-17] MEDS: MEROPENEM 500 MG in NS 50 ML IV SCH ×3 (11:45→23:19)
--- NOTE | 2020-12-17 12:00 | NUR ---
Patient current bs 197, patient is in the same condition fr initial assessment. i will continue to monitor the patient.
[2020-12-17 12:25] LABS: BAND % (MANUAL) 3 % (0-6); EOSINOPHILS % (MANUAL) 0 % (0-7); LYMPHOCYTES % (MANUAL) 5 % (20-46); MONOCYTES % (MANUAL) 4 % (0-11)
[2020-12-17 12:26] LABS: BASOPHILS % (MANUAL) 0 % (0-2); CORRECTED WHITE BLOOD COUNT 11.7 K/uL (4.5-11.0)
--- NOTE | 2020-12-17 13:30 | NUR ---
Paged dr marshall to consult regarding patients wounds. for possible interventions.
--- NOTE | 2020-12-17 13:30 | NUR ---
CONSULT SURGERY CONSULTING MD: DR. ROLLE PERSON NOTIFIED: DR. ROLLE DIALED: [phone] ORDERED BY: DR. HERNANDEZ
--- NOTE | 2020-12-17 14:00 | NUR ---
Patient's sister Jacquelin and son is at the bedside to visit the patient, given them update about pt's condition. sister very receptive about patients condition that patient is in very critical condition.
--- NOTE | 2020-12-17 16:00 | NUR ---
Patients family came to see the patient, given them updated with patient's condition, did wound care with higinio yarn weigher, redressed all wounds, patient remains on Levophed and will start Propofol drip, i will continue to monitor the patient.
--- NOTE | 2020-12-17 16:00 | NUR ---
WOUND EVALUATION: Late note for 12/17/2020 at 1600 secondary to patient care. Patient received in a Omega Bed with an Isoflex DAPHNE mattress with low air loss therapy initiated, sedated, nonverbal, nonresponsive to verbal commands. Patient is unable to turn in bed independently. Morteza Score is a 7. Past Medical History: Diabetes Mellitus. Upon admission, the patient was found to be in septic shock with hypoxemia. Recent Labs: WBC 11.7, RBC 2.75, hemoglobin 8.5, hematocrit 25.5, platelets 13, sodium 132, potassium 3.1, chloride 97, carbon dioxide 20, BUN 58, creatinine 1.91, GFR 31, glucose 267, POC glucose 220, calcium 7.5, total bilirubin 7.5, AST 125, alkaline phosphatase 340, serum total protein 4.2, albumin 1.4, PTT 89.1. Microbiology: Blood culture results x2 negative (12/10/20). Stool occult blood culture results positive (12/16/20). Intrinsic factors that delay wound healing: Diabetes mellitus, severe hypoalbuminemia. Extrinsic factors that delay wound healing: Immobility. Patient is intubated, sedated, and on Levophed drip. Patient has suffered from severe edema and third spacing with copious weeping drainage causing vascular ulcerations with necrotic tissue. A surgical consult was ordered for Dr. Evans for possible surgical debridement. Wound Assessment: 1. Right Posterior Calf: Wound, possible vascular ulcer, present on admission. Wound bed has 5% yellow tissue, 10% dark discolored tissue, 85% dull red tissue. No odor, no drainage. Periwound intact. Extremity has non-pitting edema, and red/dark purple/black ecchymosis. Wound measures 0.5 cm x 0.4 cm. Recommend: Cleanse wound with normal saline. Apply moisture barrier cream to hari-wound. Apply Venelex ointment to wound bed. Cover site with non-adhesive foam dressing. Wrap with vidya wrap. Perform site care daily, and as needed for dressing soiling or dislodgement. 2. Right Anterior Lateral Proximal Thigh (site merged with Right Lateral Proximal Thigh wound): Open bulla, present on admission. Wound bed has 5% yellow tissue, 10% dark discolored tissue, 85% dull red tissue. No odor, no drainage. Periwound intact. Extremity has non-pitting edema, and red/dark purple/black ecchymosis. Site measures 27.5 cm x 27.5 cm. Recommend: Cleanse wound with normal saline. Apply moisture barrier cream to hari-wound. Apply Venelex ointment to wound bed. Cover site with non-adhesive foam dressings, then ABD pads. Wrap with vidya wrap. Perform site care daily, and as needed for dressing soiling or dislodgement. 3. Right Anterior Dee: Multiple scattered closed bullae with serous fluid, present on admission. Wound bed has 60% dark discolored tissue, 20% pink tissue, 20% dull red tissue. No odor, no drainage. Periwound intact. Extremity has non-pitting edema, and red/dark purple/black ecchymosis. Site measures 27.3 cm x 10.2 cm. Recommend: Cleanse wound with normal saline. Apply moisture barrier cream to hari-wound. Apply Venelex ointment to wound bed. Cover site with non-adhesive foam dressings, then ABD pads. Wrap with vidya wrap. Perform site care daily, and as needed for dressing soiling or dislodgement. 4. Right Proximal Medial Thigh: Wound, probable vascular ulcer. Wound bed has 100% yellow tissue. No odor, no drainage. Extremity has non-pitting edema, and red/dark purple/black ecchymosis. Site measures 3.5 cm x 3.5 cm. Recommend: Cleanse wound with normal saline. Apply moisture barrier cream to hari-wound. Apply Venelex ointment to wound bed. Cover site with non-adhesive foam dressings, then ABD pads. Wrap with vidya wrap. Perform site care daily, and as needed for dressing soiling or dislodgement. 5. Right Anterior Medial Dee: Closed bulla with serous fluid, present on admission. Extremity has non-pitting edema, and red/dark purple/black ecchymosis. Recommend continue: No dressings needed. Continue to monitor site every shift. Contact wound care nurse if site opens or drains for wound care orders. 6. Right Dorsal Medial foot: Wound, possible vascular ulcer, present on admission. Wound bed has 95% dark discolored tissue, 5% red tissue. No odor, no drainage. Periwound intact. Extremity has non-pitting edema, and red/dark purple/black ecchymosis. Wound measures 16.5 cm x 7.5 cm. 7. Right Dorsal Foot: Wound, possible vascular ulcer, present on admission. Wound bed has 70% red tissue, 20% yellow tissue, 10% dark discolored tissue. No odor, no drainage. Periwound intact. Extremity has non-pitting edema, and red/dark purple/black ecchymosis. Wound measures 8.7 cm x 5.5 cm. Recommend: Cleanse wounds with normal saline. Apply moisture barrier cream to hari-wounds. Apply Venelex ointment to wound beds. Cover with non-adhesive foam dressings. Wrap with vidya wrap. Perform wound care daily, and as needed for dressing soiling or dislodgement. 8. Left Anterior Medial Calf: Wound, possible vascular ulcer, present on admission. Wound bed has 80% yellow tissue, 20% red tissue. No odor, scant yellow drainage. Periwound intact. Extremity has non-pitting edema, and red/dark purple/black ecchymosis. Wound measures 4.4 cm x 2.7 cm x 0.7 cm. 9. Left Mid Anterior Dee: Wound, possible vascular ulcer, present on admission. Wound bed has 10% white tissue, 40% yellow tissue, 50% red tissue. No odor, scant yellow drainage. Periwound intact. Extremity has non-pitting edema, and red/dark purple/black ecchymosis. Wound measures 3.0 cm x 1.7 cm x 0.9 cm. Recommend: Cleanse wounds with normal saline. Apply moisture barrier cream to hari-wounds. Apply Hydrogel to wound beds. Cover with non-adhesive foam dressings. Wrap with vidya wrap. Perform wound care daily, and as needed for dressing soiling or dislodgement. 10. Left Lower Extremity, Inferior to Knee: Healing wound, present on admission. Wound bed has 95% white scaly skin, 5% black scab. No odor, no drainage. Periwound intact. Extremity has non-pitting edema, and red/dark purple/black ecchymosis. Site measures 3.0 cm x 2.3 cm. Recommend: Cleanse involved area with mild soap and water. Gently pat dry. Apply moisture barrier cream to involved area. Cover site with foam dressing. Perform site care daily, and as needed for dressing soiling or dislodgment. 11. Left Dorsal Foot: Wound, probable vascular ulcer, present on admission. Wound bed has 75% yellow tissue, 15% red tissue, 10% dark discolored tissue. No odor, scant yellow drainage. Extremity has 4+ pitting edema, and red/dark purple/black ecchymosis. Wound measures 3.1 cm x 2.5 cm x 1.0 cm. Recommend: Cleanse wound with normal saline. Apply moisture barrier cream to hari-wound. Apply Venelex ointment to wound bed. Cover with non-adhesive foam dressing. Wrap with vidya wrap. Perform wound care daily, and as needed for dressing soiling or dislodgement. 12. Right Medial Distal Thigh: Wound, probable vascular ulcer. Wound bed has 95% dark discolored tissue, 5% brown tissue. No odor, no drainage. Extremity has non-pitting edema, and red/dark purple/black ecchymosis. Site measures 13.0 cm x 16.0 cm. Open area measures 7.5 cm x 7.3 cm. Recommend: Cleanse wound with normal saline. Apply moisture barrier cream to hari-wound. Apply Venelex ointment to wound bed. Cover with non-adhesive foam dressing. Wrap with vidya wrap. Perform wound care daily, and as needed for dressing soiling or dislodgement. 13. Sacral-Coccygeal area: sDTI, present on admission. Site has dark discolored and dark red-colored discoloration. No odor, no drainage. Periwound intact. Wound measures 11.5 cm x 12.0 cm. Recommend: Cleanse site with normal saline. Apply moisture barrier cream to hari-wound. Apply Venelex ointment to wound bed. Cover with non-adhesive foam dressing. Wrap with vidya wrap. Perform wound care daily, and as needed for dressing soiling or dislodgement. 14. Left Buttock near Ischium: Small area of ecchymosis with dark purple discoloration. No calor, erythema, weeping nor bogginess. 15. Right Buttock near Ischium Small area of ecchymosis with dark purple discoloration. No calor, erythema, weeping nor bogginess. Recommend: Cleanse involved areas with mild soap and water. Gently pat dry. Apply moisture barrier cream to involved areas. Cover with non-adhesive foam dressing. Wrap with vidya wrap. Perform wound care daily, and as needed for dressing soiling or dislodgement. Also recommend: Reposition patient side to side only every 2 hours with pillow support and off-load pressure areas with pillows for pressure re-distribution. Offload, elevate and float bilateral heels with one pillow lengthwise under each extremity at all times. Perform skin care and monitor skin integrity Q shift. Use moisture barrier cream on buttocks and other moisture susceptible areas QID and as needed for soiling. Maintain patient on low air-loss therapy. Spoke with patient's mother and daughter at bedside and explained to the family members about the disease process, third spacing and weeping edema (which can cause ulcerations and tissue maceration). Also explained that the use of Levophed shunts blood to the heart and brain only which causes ischemia in the other tissues, such as causing fingers, toes and extremities to become dark-discolored, or attributes to the inevitable development of pressure ulcers due to little to no tissue perfusion. Lastly, explained to family about the wounds present on her bilateral lower extremities and an sDTI development on the Sacral-Coccygeal area. Family understood education, accepted education, and accepted that the patient was in very critical condition.
--- NOTE | 2020-12-17 18:00 | NUR ---
All nurisng care and issues all have been addressed, will endorse care to clinical research nurse coordinator nurse.
--- NOTE | 2020-12-17 19:15 | NUR ---
change of shift.pt.presents affect;blunt.pt.presents rt.inj iv access.pt.receiving the administration iv fluids/drips;levophed;conc:0.1mcq/kg/min=9ml/hr,insulin:7.5-u/hr=7.5ml/hr.diprivan:5mcq/kg/m in=2.9ml/hr.note loc. pt.presents ett;7.5 lipline 23cm.vent;settings;tv;300,fio-2%=30%,a/c;24,peep;5.pt.presents ogt tube feed ; nepro;40ml/hr.pt.presents shah cath intact.pt.presents rectal tube intact.call light w/in access of the pt.
--- NOTE | 2020-12-17 20:00 | NUR ---
pt.assessed.v/s assessed values wnl.eet/ogt intact i have attended to the oral care/suction.rt.inj intact iv fluids/drips:levophed,insulin,diprivan infusing. note loc.shah cath intact urine content volume scant.rectal tube intact fecal matter present.pt.assessed for cleanliness pt repositioned.o2-sat%=96%.call light placed w/in access of the pt.
--- NOTE | 2020-12-17 20:26 | NUR ---
PAGED -SAYED FOR ORDERS DIALED: [phone] SPOKE TO: DOCTOR DID NOT ANSWER. LEFT MESSAGED FOR DOCTOR
--- NOTE | 2020-12-17 21:00 | NUR ---
2100pmedicatons administered. returned the page.i apprised of the blood glucose value@2000p:149mg/dl. ordered to decrease insulin drip rate to 6.5-units/hr.if blood glucose@2200p is <150mg/dl call .2100pmedications administered via og-tube flushed w/out resistance.og-tube residuals note 5ml.
--- NOTE | 2020-12-17 22:00 | NUR ---
pt.assessed.v/s assessed values wnl.o2-sat%=100%.ett/ogt intact i have attended to the oral care/suction.og-tube feed infusing.picc line intact iv fluids/drips;levophed,insulin,diprivan infusing.2/t diprivan note loc.blood glucose assessed value; 127mg/dl. paged apprised of the 2200p blood glucose value. ordered to decrease the insulin drip rate to 5-units/ hr and re-assess the blood glucose@2300p.if b/s value <150mg/dl the insulin drip rate to 4-units/hr.shah cath intact. pt.presents anuric urine status.rectal tube intact fecal content present. per flacc pain mgx pt.absent facial grimaces/body posturing.pt.assessed for cleanliness.pt.repositioned.call light placed w/in access of the pt.
--- NOTE | 2020-12-17 23:00 | NUR ---
blood glucose assessed value;135mg/dl.per drAdolfosayed order if b/s<150mg/dl to decrease insulin-drip rate to 4-units/hr.
[2020-12-18] VITALS (21 sets, daily range): BP systolic 91–152
--- NOTE | 2020-12-18 | NUR ---
pt.assessed.v/s assessed values wnl.ett/ogt intact i have attended to the oral care/suction.blood glucose assessed value;137mg/dl.insulin drip rate:4-units/hr.rt.inj intact iv fluids/drips;levophed,insulin,diprivan infusing;2/t diprivan note loc.ogt intact ogt feed infusing.shah cath intact urine volume anuric.rectal tube intact fecal matter present.pt.assessed for cleanliness.pt.repositioned. o2-sat%=96%.call light placed w/in access of the pt.
--- NOTE | 2020-12-18 02:00 | NUR ---
pt.assessed.ett/ogt intact.i have attended to the oral care/suction.o2-sat%=98%.rt.inj intact iv fluids/drips:/levophed,insulin,diprivan infusing:note loc.ogt feed infusing.shah cath intact urine output volume;scant.rectal tube intact fecal matter present.per flacc pain mgx pt.absent facial grimaces body posturing.pt.assessed for cleanliness.pt.repositioned.call light placed w/in access of the pt. Addendum: 12/18/20 at 0236 by Gianluca Lin RN blood glucose assessed value;146mg/dl.
[2020-12-18] MEDS: methylPREDNISolone SOD SUCC/PF 62.5 MG/ML VIAL IVP SCH ×3 (02:13→18:40)
--- NOTE | 2020-12-18 04:00 | NUR ---
pt.assessed.v/s assessed values wnl.blood glucose assessed value:138mg/dl.rt.inj intact iv fluids/drips;levophed,insulin,diprivan infusing:note loc.ett/ogt intact i have attended to the oral care/suction.shah cath intact urine volume scant.rectal tube intact fecal matter present.pt. assessed for cleanliness pt.repositioned.02-sat%=98%.per flacc pain mgx pt.absent facial grimaces/body posturing.call light/ telephone placed w/in access of the pt.
[2020-12-18] MEDS: METOCLOPRAMIDE HCL 10 MG/2 ML VIAL IVP SCH ×3 (05:07→17:26)
--- NOTE | 2020-12-18 06:30 | NUR ---
pt.assessed.v/s assessed values wnl.o2-sat%=96%blood glucose assessed value:146mg/dl. rt.inj intact iv fluids/drips;levophed,insulin,diprivan infusing.note loc.pt.assessed for cleanliness.pt.repositioned.per flacc pain mgx pt.absent facial grimaces/body posturing.call light placed w/in access of the pt.i have weighed the pt.
[2020-12-18 07:00] LABS: ALBUMIN 1.4 g/dL (3.4-4.8); CALCIUM 7.4 mg/dL (8.4-11.0); CREATININE 2.05 mg/dL (0.55-1.30); POTASSIUM 3.8 mmol/L (3.5-5.1); TOTAL BILIRUBIN 8.3 mg/dL (0.0-1.0)
--- NOTE | 2020-12-18 07:52 | NUR ---
OPENING NOTE: DR. HERNANDEZ AT BEDSIDE, VERBAL REPORT GIVEN. NO NEW ORDERS AT THIS TIME.
[2020-12-18 08:12] LABS: HEMATOCRIT 24.6 % (36-48); HEMOGLOBIN 8.1 g/dL (12.0-16.0); MEAN CORPUSCULAR HEMOGLOBIN 31 pg (27-31); MEAN CORPUSCULAR HGB CONC 33 % (32-36); MEAN CORPUSCULAR VOLUME 94 fL (79.0-98.0); RED CELL DISTRIBUTION WIDTH 18.1 % (9.0-15.0); WHITE BLOOD COUNT (AUTO) 16.3 K/uL (4.8-10.8)
--- NOTE | 2020-12-18 08:15 | NUR ---
DR. JOSÉ MIGUEL OCONNELL AT BEDSIDE VERBAL REPORT GIVEN.
--- NOTE | 2020-12-18 08:42 | NUR ---
DR. AKINS AT BEDSIDE, VERBAL REPORT GIVEN, PER MD PATIENT WILL RECEIVE HEMODIALYSIS TODAY.
[2020-12-18 08:49] LABS: PLATELET COUNT (AUTO) 22 K/uL (130-430)
--- NOTE | 2020-12-18 08:52 | NUR ---
CRITICAL LAB RESULT: PLATELET 22, SPOKE TO MD DR. HERNANDEZ IN PERSON AND HE IS AWARE OF RESULT, NO NEW ORDERS AT THIS TIME.
[2020-12-18] MEDS: FAMOTIDINE PF 20 MG/2 ML VIAL IVP SCH (09:07)
[2020-12-18] MEDS: NACL 0.9% 1,000 ML IV SCH (09:08)
[2020-12-18] MEDS: AMIODARONE HCL 200 MG TABLET NG SCH (09:08)
[2020-12-18] MEDS: PEG 400/HYPROMELLOSE/GLYCERIN 15 ML DROPS OP SCH ×3 (09:09→17:26)
[2020-12-18] MEDS: MEROPENEM 500 MG in NS 50 ML IV SCH (10:38)
[2020-12-18] MEDS: NOREPINEPHRINE BITARTRATE 16 MG in NS 234 ML IV PRN ×2 (10:40→16:39)
--- NOTE | 2020-12-18 11:00 | NUR ---
FAMILY UPDATE AUNT ROGELIO CALLED UNIT, UPDATES GIVEN, ALL QUESTIONS ANSWERED AT THIS TIME.
[2020-12-18 12:01] LABS: BAND % (MANUAL) 8 % (0-6); BASOPHILS % (MANUAL) 0 % (0-2); EOSINOPHILS % (MANUAL) 0 % (0-7); LYMPHOCYTES % (MANUAL) 7 % (20-46); MONOCYTES % (MANUAL) 4 % (0-11)
[2020-12-18 12:03] LABS: CORRECTED WHITE BLOOD COUNT 13.7 K/uL (4.5-11.0)
--- NOTE | 2020-12-18 12:04 | NUR ---
Nutrition F/U Admitting Diagnosis: Septic Shock Medical History Comment: Pt w/: pneumonia, son ST-elevation myocardial infarction, acute kidney injury, thrombocytopenia, lymphopenia. PMH: diabetes 12/10 notes: Right foot wound infection 2/2 enteroccous Facealis, left foot wound infection 2/2 klebsiella pneumoniae 12/18 notes: Pancytopenia likely bone marrow suppression, Septic shock w/ multiorgan failure SARS-CoV-2 Ag Rapid Negative 12/05 Subjective Information: Pt was seen at bedside, RN inside the room providing care. EN was observed to be infusing as ordered. RN confirmed that Ever is being provided BID. RN also reported that propofol in infusing at 10mcg/kg/min and that pt will have HD today. Per EMR review, pt developed purplish discoloration in large patches and blisters in BLE. Pt remains orally intubated, on vent support and appeared jaundiced. MD is suggesting family conference as pt is not doing well. Pt is aphasic, abdomen is distended, firm w/ hypoactive bowel sounds. BM 12/17 x1, Morteza scale: 18, microarray specialist saw pt on 12/07: 1. Right Posterior Calf: Wound, possible vascular ulcer, present on admission. 2. Right Anterior Lateral Proximal Thigh: Open bulla, present on admission. 3. Right Lateral Proximal Thigh: Closed bulla with serous fluid, present on admission. Extremity has 4+ pitting edema, and red/dark purple/black ecchymosis. 4. Right Anterior Dee: Multiple scattered closed bullae with serous fluid, present on admission. 5. Right Anterior Medial Dee: Closed bulla with serous fluid, present on admission. 6. Right Dorsal Medial foot: Wound, possible vascular ulcer, present on admission. 7. Right Dorsal Foot: Wound, possible vascular ulcer, present on admission. 8. Left Anterior Medial Calf: Wound, possible vascular ulcer, present on admission. 9. Left Mid Anterior Dee: Wound, possible vascular ulcer, present on admission. 10. Left Lower Extremity, Inferior to Knee: Healing wound, present on admission. 11. Left Dorsal Foot: Wound, probable vascular ulcer, present on admission. 2+ pitting edema to both UE and LE per assessment director. EN rate: 40ml (12/18), GRV: 50ml (12/17). HD was held yesterday, Nephrology to re-evaluate pt today for possible HD. Current EN is adequate and appropriate. Current Diet Order/Nutrition Support: Nepro at 40 ml/hr (goal rate), Ever BID, Free Water Flush: [id number] ML (per physician) via NGT x6 days Pertinent Medications: reglan, lasix, pepcid, IV ALB, solu-medrol, propofol at 10mcg/kg/min (144 sloan/day) Pertinent Labs: 12/17: Na 132 L, K 3.8 WNL, BUN 81 H, CRE 2.05 H, BG 140 H, POC BG 145 H, TG 630H, ALP 738H Height: 5'5" Weight: 200#, 91 kg (12/07) -- stable Body Mass Index: 33.28 kg/m2 Foster/Adjusted Body Weight: 125#/57kg Estimated Energy Expenditure (kcals/day) (Tmax: 37.1'C; Ve: 11.4) RD unable to obtain new Ve. 1849 Kcal/day ([facility] for critical care, intubated on vent) Estimated Protein Required (g/day) 68-86 gm/day (1.2-1.5 gm/kg IBW for JOSUE on HD) Estimated Fluid Required (l/day) per MD (JOSUE and diuretic administration) Problem/Etiology/Signs/Symptoms Inadequate intake r/t intubated status AEB NPO x 2 days since admission. (*improving, pt is on EN support) Increased protein-calorie needs r/t metabolic demands AEB estimated calorie and protein for JOSUE and plan to be on HD (*ongoing) Expected Outcomes/Goals Monitor EN tolerance and intake w/ goal of pt meeting more than 75% of estimated nutritional needs, labs trending WNL, normal GI function, skin integrity/wt maintenance. Dietitian Recommendations * Recommend continue Nepro at 40 ml/hr (goal rate), Ever BID, Free Water Flush: V7D-005 ML (per physician) via NGT Provides (w/ propofol): 2032 kcal/day, 83 gm protein/day, and 1298 ml free water flush/day Meets: 109% of estimated caloric needs and 97% of upper end of estimated protein needs Follow Up High Risk: F/U in 2-3 days
--- NOTE | 2020-12-18 12:11 | NUR ---
Dietitian Recommendations * Recommend continue Nepro at 40 ml/hr (goal rate), Ever BID, Free Water Flush: Z4M-900 ML (per physician) via NGT Provides (w/ propofol): 2032 kcal/day, 83 gm protein/day, and 1298 ml free water flush/day Meets: 109% of estimated caloric needs and 97% of upper end of estimated protein needs Please see Nutrition F/U note for details. SAGAR, RD
--- NOTE | 2020-12-18 13:00 | NUR ---
RN ROUNDS PATIENT REPOSITIONED, NEW LINENS AND GOWN APPLIED, BED LOW AND LOCKED FOR SAFETY.
--- NOTE | 2020-12-18 14:01 | NUR ---
HEMODIALYSIS NURSE AT BEDSIDE.
[2020-12-18] MEDS ORDERED: HEPARIN SODIUM,PORCINE 5,000 UNITS/ML VIAL ONE (14:35)
--- NOTE | 2020-12-18 15:22 | NUR ---
PATIENT NOT TOLERATING HEMODIALYSIS, HD NURSE HAS STOPPED TREATMENT R/T LOW BLOOD PRESSURE. MD AKINS AWARE AND SPOKE WITH HD NURSE TO STOP HEMODIALYSIS.
--- NOTE | 2020-12-18 15:24 | NUR ---
UNABLE TO OBTAIN BLOOD PRESSURE, CHARGE MADE AWARE, CHARGE ASSISTED WITH SITE CHANGE WITH NO SUCCESS. PATIENT HAS EXTENSIVE SWELLING TO BUE, WOUNDS TO BLE UNABLE TO PLACE CUFF. PAGED TO NOTIFY.
--- NOTE | 2020-12-18 15:30 | NUR ---
SPOKE WITH DR. HERNANDEZ OVER PHONE, HE IS AWARE OF NO BLOOD PRESSURE BEING OBTAINED, PLAN IS FOR A-LINE ON 12.18.2020, WILL SPEAK WITH FAMILY TO DISCUSS. CHARGE AWARE.
--- NOTE | 2020-12-18 16:00 | NUR ---
NO BLOOD PRESSURE READING / ATTEMPTED WITH MANUAL CUFF / AUTOMATIC CUFF WITH NO SUCCESS
--- NOTE | 2020-12-18 16:30 | NUR ---
NO BLOOD PRESSURE READING / ATTEMPTED WITH MANUAL CUFF / AUTOMATIC CUFF WITH NO SUCCESS
--- NOTE | 2020-12-18 17:00 | NUR ---
NO BLOOD PRESSURE READING / ATTEMPTED WITH MANUAL CUFF / AUTOMATIC CUFF WITH NO SUCCESS
--- NOTE | 2020-12-18 17:30 | NUR ---
NO BLOOD PRESSURE READING / ATTEMPTED WITH MANUAL CUFF / AUTOMATIC CUFF WITH NO SUCCESS
--- NOTE | 2020-12-18 18:00 | NUR ---
NO BLOOD PRESSURE READING / ATTEMPTED WITH MANUAL CUFF / AUTOMATIC CUFF WITH NO SUCCESS
--- NOTE | 2020-12-18 18:07 | NUR ---
FAMILY UPDATE, SPOKE TO SOFIA OVER PHONE, UPDATES GIVEN AND FAMILY IS AWARE OF CURRENT CONDITION IT RELATES TO BLOOD PRESSURE READINGS. FAMILY AWARE THAT MD WILL CALL IN AM TO DISCUSS A-LINE PLACEMENT.
--- NOTE | 2020-12-18 19:08 | NUR ---
CLOSING NOTE: REPORT GIVEN TO INCOMING RN, ALL CARES ENDORSED.
--- NOTE | 2020-12-18 19:20 | NUR ---
Pt report received.
--- NOTE | 2020-12-18 19:28 | NUR ---
Irregular rhythm noted, unable to obtain B/P, no detectable pulse. Code Blue called. Please see code sheet for ongoing details.
[2020-12-18] MEDS ORDERED: EPINEPHrine JECT 0.1 MG/ML SYR IVP ONE (19:30)
[2020-12-18] MEDS ORDERED: NORMAL SALINE 10 ML VIAL IVP ONE (19:30)
[2020-12-18] MEDS ORDERED: CALCIUM CHLORIDE 1 GM/10 ML DISP.SYRIN (14 mEq Ca++/SYR) IV ONE (19:30)
--- NOTE | 2020-12-18 19:45 | NUR ---
Pt pronounced at this time by ER physician Dr. Denton. Family made aware.
--- NOTE | 2020-12-18 19:50 | NUR ---
Pt's family members, sister and daughter at bedside.
--- NOTE | 2020-12-18 20:03 | NUR ---
NOTIFIED OF PT EXPIRATION [phone] JESSE MAJOR DEVESH -SPOKE TO: ELLIE THEODORE [phone] -SPOKE TO: [place] KRAUSE,[facility] [phone] -SPOKE TO: LEFT MESSAGE SANJANA REID [phone] -SPOKE TO: DARIN
--- NOTE | 2020-12-18 20:15 | NUR ---
NOTIFIED OF PT EXPIRATION FISH ENGEL [phone] -SPOKE TO: HIWOT RODRIGUEZ [phone] -SPOKE TO: TOMÁS (ANSWERING SERVICE)
--- NOTE | 2020-12-18 20:20 | NUR ---
Notified [employer] of pt's . Per Kylee, pt not suitable for donation and may release body to home. Case# [id number].
--- NOTE | 2020-12-18 20:26 | NUR ---
Contacted [employer], spoke with Mateo Campbell and informed that pt is not a room server's case.
--- NOTE | 2020-12-18 20:40 | NUR ---
Post mortem care provided.
--- NOTE | 2020-12-18 23:40 | NUR ---
Pt remains released to [employer] [employer] training representative. No pt belongings present.
== END 2020-12-18 22:54 | DRG 870 ==
LOC: SED 11:41 → SIC 14:35
PROVIDERS: ADMIT Internal Medicine Hospice and Palliative Medicine; ATTEND Internal Medicine Hospice and Palliative Medicine
PROC: 5A1955Z Respiratory Ventilation, Greater than 96 Consecutive Hours (ICD-10-PCS; principal; 2020-12-05)
PROC: 0BH17EZ Insertion of Endotracheal Airway into Trachea, Via Natural or Artificial Opening (ICD-10-PCS; 2020-12-05)
PROC: 5A09357 Assistance with Respiratory Ventilation, Less than 24 Consecutive Hours, Continuous Positive Airway Pressure (ICD-10-PCS; 2020-12-05)
PROC: 30233R1 Transfusion of Nonautologous Platelets into Peripheral Vein, Percutaneous Approach (ICD-10-PCS; 2020-12-07)
PROC: 30233N1 Transfusion of Nonautologous Red Blood Cells into Peripheral Vein, Percutaneous Approach (ICD-10-PCS; 2020-12-07)
PROC: 5A1D70Z Performance of Urinary Filtration, Intermittent, Less than 6 Hours Per Day (ICD-10-PCS; 2020-12-07)
PROC: B54CZZA Ultrasonography of Left Lower Extremity Veins, Guidance (ICD-10-PCS; 2020-12-07)
PROC: 06HY33Z Insertion of Infusion Device into Lower Vein, Percutaneous Approach (ICD-10-PCS; 2020-12-07)
PROC: 5A1D70Z Performance of Urinary Filtration, Intermittent, Less than 6 Hours Per Day (ICD-10-PCS; 2020-12-08)
PROC: 5A1D70Z Performance of Urinary Filtration, Intermittent, Less than 6 Hours Per Day (ICD-10-PCS; 2020-12-10)
PROC: 02HV33Z Insertion of Infusion Device into Superior Vena Cava, Percutaneous Approach (ICD-10-PCS; 2020-12-11)
PROC: B548ZZA Ultrasonography of Superior Vena Cava, Guidance (ICD-10-PCS; 2020-12-11)
PROC: 5A1D70Z Performance of Urinary Filtration, Intermittent, Less than 6 Hours Per Day (ICD-10-PCS; 2020-12-12)
PROC: 30233K1 Transfusion of Nonautologous Frozen Plasma into Peripheral Vein, Percutaneous Approach (ICD-10-PCS; 2020-12-13)
PROC: 5A1D70Z Performance of Urinary Filtration, Intermittent, Less than 6 Hours Per Day (ICD-10-PCS; 2020-12-14)
PROC: 5A12012 Performance of Cardiac Output, Single, Manual (ICD-10-PCS; 2020-12-18)
PROC: 5A1D70Z Performance of Urinary Filtration, Intermittent, Less than 6 Hours Per Day (ICD-10-PCS; 2020-12-18)
DX: A41.50 Gram-negative sepsis, unspecified (principal); R65.21 Severe sepsis with septic shock; I21.4 Non-ST elevation (NSTEMI) myocardial infarction; J18.9 Pneumonia, unspecified organism; J80 Acute respiratory distress syndrome; N17.0 Acute kidney failure with tubular necrosis; T80.218A Other infection due to central venous catheter, initial encounter; B37.49 Other urogenital candidiasis; D61.818 Other pancytopenia; E87.2 Acidosis; I13.0 Hypertensive heart and chronic kidney disease with heart failure and stage 1 through stage 4 chronic kidney disease, or unspecified chronic kidney disease; L03.115 Cellulitis of right lower limb; L03.116 Cellulitis of left lower limb; Z99.11 Dependence on respirator [ventilator] status; B96.1 Klebsiella pneumoniae [K. pneumoniae] as the cause of diseases classified elsewhere; E11.22 Type 2 diabetes mellitus with diabetic chronic kidney disease; E11.51 Type 2 diabetes mellitus with diabetic peripheral angiopathy without gangrene; E83.52 Hypercalcemia; I50.9 Heart failure, unspecified; N18.9 Chronic kidney disease, unspecified; E66.01 Morbid (severe) obesity due to excess calories; Z20.822 Contact with and (suspected) exposure to COVID-19; I46.9 Cardiac arrest, cause unspecified; D50.9 Iron deficiency anemia, unspecified; E11.65 Type 2 diabetes mellitus with hyperglycemia; I48.0 Paroxysmal atrial fibrillation; E88.09 Other disorders of plasma-protein metabolism, not elsewhere classified; K72.90 Hepatic failure, unspecified without coma; Y83.8 Other surgical procedures as the cause of abnormal reaction of the patient, or of later complication, without mention of misadventure at the time of the procedure; Z79.4 Long term (current) use of insulin; Z68.37 Body mass index [BMI] 37.0-37.9, adult; Z79.899 Other long term (current) drug therapy; Y92.89 Other specified places as the place of occurrence of the external cause
CPT/HCPCS: 36415; 36600; 71045; 76700-TC; 76770; 80048; 80053; 80202; 81000; 82272; 82330; 82607; 82728; 82746; 82803-TC; 82962; 83010; 83036; 83540; 83550; 83605; 83735; 84100; 84436; 84443; 84478; 84484; 85007; 85025; 85027; 85379; 85384; 85610-TC; 85651-TC; 85730-TC; 86140; 86706; 86803; 86886; 86900; 86901; 86920; 87040-TC; 87070-TC; 87081; 87086; 87186-TC; 87205-TC; 87340; 90935; 90937; 93005; 93306; 93923; 94002; 94003; 94640; 94660; 94760; 96365; 96366; 96367; 96368; 99291; J0171; J0282; J0456; J0610; J0692; J1450; J1644; J1720; J1815; J1940; J1956; J2185; J2270; J2370; J2543; J2704; J2765; J2930; J3370; J3430; J3475; J3490; J7040; J7050; J7060; P9021; P9034; P9046; P9059